=== PATIENT | male | born 1935 | race Caucasian/White ===

== ENCOUNTER 2016-12-02 22:12 | Emergency (ER) | payer MEDICARE, BC ==
[~2016-12-02] VITALS: Ht 177.8 cm; Wt 80.0 kg
[~2016-12-02 22:12] MED LIST: TAMS0.4C20 PO
[2016-12-02 22:15] VITALS: Ht 177.8 cm; Wt 80.0 kg
--- OUTSIDE RECORDS SUMMARY | 2016-12-02 22:15 | XMS REPORT | Continuity of Care Document ---
Author Author [facility] Organization [facility] Address Unknown Phone Unavailable Care Team Providers Care Registered Nurse Ambulatory Name Role Phone Adin Martinez MD PP [phone] Insurance Providers Payer Name Policy Number Subscriber Name Relationship Lyle [facility] Supp [id number] Kieran Lynch 18 Self / Same As Patient [facility] [employer] Amer[employer]p [id number] Kieran Lynch 18 Self / Same As Patient Medicare A And B [id number] Kieran Lynch 18 Self / Same As Patient Advance Directives Directive Response Recorded Date Advanced Directives Not applicable 3:05am Problems No Known Problems or Medical conditions. Allergies, Adverse Reactions, Alerts Allergen Type Severity Reaction Last Updated No Known Drug Allergies 03/13/13 Medications No known medications Response Recorded Date/Time Status not known Unknown Results No Known Relevant Diagnostic Tests, Laboratory Data and/or Discharge Summary. Procedures Procedure Code Date MEASURE BLOOD OXYGEN LEVEL 06294 EXTRACRANIAL BILAT STUDY 59441 12/21/12 COMPREHEN METABOLIC PANEL 76878 03/13/13 ASSAY OF TROPONIN QUANT 13447 03/13/13 ASSAY OF CK (CPK) 42526 03/13/13 CREATINE MB FRACTION 21861 03/13/13 COMPLETE CBC W/AUTO DIFF WBC 40189 PROTHROMBIN TIME 96749 03/13/13 THROMBOPLASTIN TIME PARTIAL 23262 URINALYSIS AUTO W/O SCOPE 95210 03/13/13 CHEST X-RAY 1 VIEW FRONTAL 96518 EMERGENCY DEPT VISIT 85788 03/13/13 MEASURE BLOOD OXYGEN LEVEL 81472 ELECTROCARDIOGRAM TRACING 44775 03/13/13 J2405 03/13/13 A4216 03/13/13 ULTRASOUND THERAPY 09994 03/29/13 THERAPEUTIC EXERCISES 81192 03/29/13 PT EVALUATION 18461 03/29/13 Encounters Encounter Location Date/Time Departed Emergency Room [facility] 03/13/13 2:59am
--- OUTSIDE RECORDS SUMMARY | 2016-12-02 22:15 | XMS REPORT | Summary of Care ---
Author Author Cristóbal LANG Jill Organization Unknown Address [address] [place], [place] [id number] Phone Unavailable Care Team Providers Care Home Economics Expert Name Role Phone Rosario Lainez, Little Unavailable Unavailable Solis P.A., Love Unavailable Unavailable Alonso P.A., Millie Unavailable Unavailable Cristóbal LANGJill Unavailable Unavailable Rickey Lainez, A Unavailable Unavailable Petros Lainez, Stacie Unavailable Unavailable Rosanna Corona Unavailable Unavailable Unavailable Unavailable Functional Status Name Dates Details Functional status health issues are not documented Status: Name Dates Details Cognitive status health issues are not documented Status: Problems Name Dates Details Bronchiectasis (494.0, J47.9) Status: Active Chronic obstructive pulmonary disease (496, J44.9) Status: Active Obstructive sleep apnea (327.23, G47.33) Status: Active Hypoxia (799.02, R09.02) Status: Active Medications Name Dates Details Sulfamethoxazole-TMP DS 800-160 MG TABS TAKE 1 TABLET BY MOUTH TWICE DAILY ROTATE MONTHLY WITH DOXYCYCLINE AND CIPRO Quantity: 20 Harpal Morrell M.D. * Start Active Ipratropium-Albuterol 0.5-2.5 (3) MG/3ML Inhalation Solution USE 1 VIAL IN NEBULIZER FOUR TIMES A DAY * Quantity: 180 Refills: 3 Harpal Morrell M.D. * Start 03-Apr-2010 Active Brovana 15 MCG/2ML Inhalation Nebulization Solution USE 1 VIAL PER NEBULIZER EVERY 12 HOURS * Quantity: 120 Refills: 11 Jill Ambrocio APRN * Start 20-Aug-2016 Active Gentamicin 80 mg in 45cc of [place] Saline [place] 2 squirts each nostril TID * Quantity: 1 Refills: 0 Kevon Lang M.D. * Start 24-Oct-2010 Active Cefuroxime Axetil 250 MG Oral Tablet TAKE 1 TABLET BY MOUTH TWICE DAILY FOR 10 DAYS EVERY 3 MONTHS * Quantity: 20 Refills: 3 Chris Ponce M.D. * Start 03-Dec-2010 Active Supplies Home nebulizer unit, permanent use, Jt=036 * Quantity: 1 Refills: 0 Harpal Morrell M.D. * Start 13-Aug-2012 Active Oxygen Renew home concentrator=4 L at rest & 2 liters with [id number] resting oximetry=88% on room air; exercise oximetry on 5 liters=85% * Quantity: 1 Refills: 0 Solis P.A.Love * Start 10-Dec-2012 Active Oxygen Renew Portable O2 with conserver on 6 liters 8-12 hours a day with activity Exercise oximetry=81% on room air and 85% on 5 liters * Quantity: 1 Refills: 0 Solis P.A.Love * Start 10-Dec-2012 Active Oxygen Oxygen 4L 24 hours, 496, 494, permanent use, Concentrator plus portable system with conserver * Quantity: 1 Refills: 0 Harpal Morrell M.D. * Start 11-Jun-2013 Active Supplies CPAP at 14cm H20, repair, services and supplies, 327.23 Mask, headgear, filters , heated tubing, chinstrap * Quantity: 1 Refills: 0 Harpal Morrell M.D. Start 19-Aug-2013 Active Budesonide 0.25 MG/2ML Inhalation Suspension USE 1 VIAL PER NEBULIZER TWICE DAILY * Quantity: 120 Refills: 11 Tungate MARBLE [employer] GRANITE POLISHER, Jill * Start 20-Aug-2016 Active Supplies nebulizer and supplies permanent use dx 496 * Quantity: 1 Refills: 0 Alonso P.AMillie Riley * Start 15-Nov-2013 Active Supplies CPAP repair, services, and supplies (dx=G47.33)Mask, headgear, filters, heated tubing, chinstrap * Quantity: 1 Refills: 0 Solis P.A.Love * Start 25-May-2015 Active Mucus Relief ER 600 MG Oral Tablet Extended Release 12 Hour * Refills: 0 * Start 24-Nov-2015 Active Supplies Alarm for when the power goes out (he can't hear the soft alarm on his O2 concentrator) dx G47.33, J47.9, permanent use * Quantity: 1 Refills: 0 Alonso P.A.Millie * Start 24-Nov-2015 Active Sulfamethoxazole-Trimethoprim 800-160 MG Oral Tablet TAKE 1 TABLET BY MOUTH TWICE DAILY ROTATE MONTHLY WITH DOXYCYCLINE AND CIPRO * Quantity: 20 Refills: 3 Harpal Morrell M.D. * Start 07-Mar-2016 Active Supplies CPAP 14 cm H2O, Permanent use, G47.33, Heated humidity, [id number], mask, headgear, filters, heated tubing, water chamber, chinstrap * Quantity: 1 Refills: 0 Alonso P.A.Millie * Start 02-May-2016 Active Supplies CPAP repair, services and supplies DX- G47.33, Mask, headgear, filters, heated tubing, chinstrap. * Quantity: 1 Refills: 0 Tungate Jill LANG * Start 26-Sep-2016 Active Allergies and Adverse Reactions Name Dates Details ciprofloxacin (Allergy) Status: Active doxycycline (Allergy) Status: Active Penicillins (Allergy) Status: Active Quinolones (Allergy) Status: Active Past Medical History Name Dates Details History of Acute sinusitis (461.9, J01.90) Status: Resolved History of Bladder Cancer (V10.51) Status: Resolved History of Bronchiectasis with acute exacerbation (494.1, J47.1) Status: Resolved Procedures Procedure Dates Details Procedures not documented Immunization Name Dates Details Pneumo (Pneumovax) Lot #: [id number] on: Influenza Lot #: [id number] on: 16-Mar-2009 Influenza Lot #: [id number] on: 02-May-2011 Influenza Lot #: [id number] on: 13-May-2013 Prevnar 13 Intramuscular Suspension Lot #: [id number] on: 12-Jul-2014 Social History Name Dates Details - Status: Name Dates Details Never smoker Vital Signs Date Test Result Details 26-Sep-2016 12:46 BP Systolic 142 mm[Hg] Status: Comments: Location: ; Position: BP Diastolic 62 mm[Hg] Status: Comments: Location: ; Position: Heart Rate 91 /min Status: Comments: Location: ; Physical Findings 20 Status: Comments: Respiration Height 70 in Status: Weight 170 lb Status: Physical Findings 95 Status: Comments: O2 Saturation FiO2 flow rate 2 L/min Status: Body Mass Index Calculated 24.39 kg/m2 Status: Body Surface Area Calculated 1.95 m2 Status: Results Date Description Value Details Results not documented Plan of Care Name Dates Details Planned Observations Planned Goals not documented Planned Encounters Appointment; Provider: Jill Ambrocio A.P.R.N. On 13:30 Interventions Provided Medication Changes* Supplies - Start Instructions Name Dates Details Instructions not documented Encounters Appointment; Harpal Morrell M.D. Encounter Diagnosis: Problem not documented On 27-Jun-2016 13:00 Appointment; Harpal Morrell M.D. Encounter Diagnosis: Problem not documented On 02-May-2016 13:45 Appointment; Harpal Morrell M.D. Encounter Diagnosis: Problem not documented On 24-Nov-2015 13:15 Appointment; Harpal Morrell M.D. Encounter Diagnosis: Problem not documented On 25-May-2015 11:15 Appointment; Harpal Morrell M.D. Encounter Diagnosis: Problem not documented On 14:45
--- OUTSIDE RECORDS SUMMARY | 2016-12-02 22:15 | XMS REPORT | Summary of Care ---
Author Author Love Victoria Organization Unknown Address [address] [place], [place] [id number] Phone Unavailable Care Team Providers Care Processor Solid Propellant Name Role Phone Love Victoria Unavailable Unavailable Millie Branch Unavailable Unavailable Rickey Lainez, Marleni Unavailable Unavailable Petros Lainez, Stacie Unavailable Unavailable Trey Madera PP Unavailable Unavailable Unavailable Functional Status Functional Status Health Issues* Name Dates Details Functional status health issues are not documented Status: Cognitive Status Health Issues* Name Dates Details Cognitive status health issues are not documented Status: Problems Name Dates Details Chronic obstructive pulmonary disease (496, J44.9) Status: Active Bronchiectasis (494.0, J47.9) Status: Active Hypoxia (799.02, R09.02) Status: Active Obstructive sleep apnea (327.23, G47.33) Status: Active Medications Name Dates Details Sulfamethoxazole-TMP DS 800-160 MG Oral Tablet TAKE ONE TABLET BY MOUTH TWICE A DAY x 10 DAYS Quantity: 20 Millie Gupta.ARosemary* Started ActiveDoxycycline Hyclate 100 MG Oral Capsule Take 1 capsule twice daily for 10 days. * Quantity: 20 Refills: 3 Millie Gupta* Started ActiveBudesonide 0.25 MG/2ML Inhalation Suspension INHALE 1 VIAL VIA NEBULIZER TWICE DAILY * Quantity: 60 Refills: 0 Harpal Morrell M.D.* Started ActiveIpratropium-Albuterol 0.5-2.5 (3) MG/3ML Inhalation Solution USE 1 VIAL IN NEBULIZER FOUR TIMES A DAY * Quantity: 180 Refills: 3 Harpal Morrell M.D.* Started 03-Apr-2010 ActiveGentamicin 80 mg in 45cc of [place] Saline [place] 2 squirts each nostril TID * Quantity: 1 Refills: 0 Kevon Lang M.D.* Started 24-Oct-2010 ActiveSupplies Nocturnal CPAP * Quantity: 1 Refills: 0 Harpal Morrell M.D.* Started 13-Aug-2012 ActiveSupplies Home nebulizer unit, permanent use, Mc=203 * Quantity: 1 Refills: 0 Harpal Morrell M.D.* Started 13-Aug-2012 ActiveOxygen Renew home concentrator=4 L at rest & 2 liters with [id number] resting oximetry=88% on room air; exercise oximetry on 5 liters=85% * Quantity: 1 Refills: 0 Kavya Elyia P.A.* Started 10-Dec-2012 ActiveOxygen Renew Portable O2 with conserver on 6 liters 8-12 hours a day with activity Exercise oximetry=81% on room air and 85% on 5 liters * Quantity: 1 Refills: 0 Love Ely P.A.* Started 10-Dec-2012 ActiveOxygen Oxygen 4L 24 hours, 496, 494, permanent use, Concentrator plus portable system with conserver * Quantity: 1 Refills: 0 Harpal Morrell M.D.* Started 11-Jun-2013 ActiveSupplies CPAP at 14cm H20, repair, services and supplies, 327.23 Mask, headgear, filters , heated tubing, chinstrap * Quantity: 1 Refills: 0 Harpal Morrell M.D.* Started 19-Aug-2013 ActiveSupplies nebulizer and supplies permanent use dx 496 * Quantity: 1 Refills: 0 Millie Gupta P.A.* Started 15-Nov-2013 ActiveCefuroxime Axetil 250 MG Oral Tablet TAKE ONE TABLET BY MOUTH TWICE A DAY FOR 10 DAYS * Quantity: 20 Refills: 3 Millie Gupta P.A.* Started 03-Dec-2010 ActiveBrovana 15 MCG/2ML Inhalation Nebulization Solution INHALE ONE AMPULE BY NEBULIZER EVERY 12 HOURS dx 496/494 * Quantity: 120 Refills: 6 Harpal Morrell M.D.* Started 21-Jun-2010 ActiveBudesonide 0.25 MG/2ML Inhalation Suspension NEBULIZE ONE VIAL VIA NEBULIZER TWICE A DAY DX:496 * Quantity: 120 Refills: 5 Harpal Morrell M.D.* Started 19-Aug-2013 Active Allergies and Adverse Reactions Name Dates Details Quinolones Status: Active Past Medical History Name Dates Details History of Acute sinusitis (461.9, J01.90) Status: Resolved History of Bladder Cancer (V10.51) Status: Resolved History of Bronchiectasis with acute exacerbation (494.1, J47.1) Status: Resolved Procedures Procedure Dates Details Procedures not documented Immunization Name Dates Details Pneumo (Pneumovax) Lot #: [id number] Administered on: Influenza Lot #: [id number] Administered on:16-Mar-2009 Influenza Lot #: [id number] Administered on:02-May-2011 Influenza Lot #: [id number] Administered on:13-May-2013 Prevnar 13 Intramuscular Suspension Lot #: [id number] Administered on:12-Jul-2014 Social History Name Dates Details Smoking Status* Never smoker Vital Signs Date Test Result Details 14:39 BP Systolic 124 mm[Hg] Status: BP Diastolic 66 mm[Hg] Status: Heart Rate 84 /min Status: Weight 179 lb Status: O2 SAT 91 % Status: FiO2 flow rate 4 L/min Status: Body Mass Index Calculated 25.68 kg/m2 Status: Body Surface Area Calculated 1.99 m2 Status: Results Date Description Value Details Results not documented Plan of Care Planned Observations* Name Dates Details Planned Goals not documented Goal Instructions * Instructions not documented Encounters Appointment; Harpal Morrell Encounter Diagnosis: Problem not documented On 14:45 Appointment; Harpal Morrell Encounter Diagnosis: Problem not documented On 12-Jul-2014 11:00 Appointment; Harpal Morrell Encounter Diagnosis: Problem not documented On 13:45 Appointment; Harpal Morrell Encounter Diagnosis: Problem not documented On 15-Nov-2013 14:15 Appointment; Harpal Morrell Encounter Diagnosis: Problem not documented On 19-Aug-2013 13:45 Appointment; Harpal Morrell Encounter Diagnosis: Problem not documented On 13-May-2013 12:00
--- OUTSIDE RECORDS SUMMARY | 2016-12-02 22:15 | XMS REPORT | Continuity of Care Document ---
Author Author [facility] Address Unknown Phone Unavailable Allergies Active Description Code Type Severity Reaction Onset Reported/Identified Relationship to Patient Clinical Status Yes ciprofloxacin NKMA N/A Attacks Tendons 11/19/2013 Medications Problems Procedures Results Encounters ACCT No. Visit Date/Time Discharge Status Pt. Type Provider Facility Loc./Unit Complaint [id number] 05/31/2013 14:00:00 2012 00:01:00 DIS Outpatient [id number] 06/11/2013 12:50:00 2012 23:59:59 [facility] Outpatient [id number] 03/13/2013 02:52:00 2012 23:59:59 C[facility] Outpatient [id number] 03/13/2013 02:59:00 2012 08:02:00 DIS Emergency
--- OUTSIDE RECORDS SUMMARY | 2016-12-02 22:16 | XMS REPORT | Referral Summary ---
Author Author [facility] [place], [facility] Organization [facility] Address Unknown Phone Unavailable Care Team Providers Care Money Room Teller Name Role Phone Laquita Corona Primary Care Physician [phone] Encounter VC Date(s): 12/14/14 - 12/14/14 [facility] [place], [address] [place] [address] Discharge Disposition: 01-Home or Self Care Attending Physician: Tk Josue MD Admitting Physician: Tk Josue MD Vital Signs Most recent to 1 oldest [Reference Range]: Temperature Oral 35 degC [35.8-37.3 degC] *LOW* (12/14/14 10:31 AM) Peripheral Pulse 88 bpm Rate [60-100 bpm] (12/14/14 10:31 AM) Blood Pressure 150/70 mmHg [90-140/60-90 mmHg] *HI* (12/14/14 10:31 AM) SpO2 94 % (12/14/14 10:31 AM) Problem List Condition Effective Dates Status Health Status Informant Anemia(Confirmed) Resolved BPH (benign Active prostatic hyperplasia)(Confirm ed) Bladder Resolved CA(Confirmed) Bronchiolectasis Active (disorder)(Confirmed ) Chronic Resolved Duodenitis(Confirmed ) H. Pylori Resolved +(Confirmed) Hypercholesterolemia Active (Confirmed) Hypoxia(Confirmed) Active Osteoarthritis(Confi Resolved rmed) COPD, Active severe(Confirmed) Sleep Resolved apnea(Confirmed) Sleep apnea Active (disorder)(Confirmed ) Tubulovillous Resolved Adenoma(Confirmed) Allergies, Adverse Reactions, Alerts Substance Reaction Severity Status ciprofloxacin Attacks Tendons Active Medications acetaminophen 325 mg oral tablet tabs, Oral, q4hr, 0 Refill(s) Start Date: 04/13/14 Status: Ordered Bactrim tabs, Oral, BID, takes for tens days every three months rotating with other antibiotics, 0 Refill(s) Start Date: 04/14/14 Status: Ordered Brovana 15 mcg/2 mL inhalation solution 1 Each, NEB, BID, # 60 Each, 0 Refill(s) Start Date: 04/13/14 Status: Ordered budesonide 0.25 mg/2 mL inhalation suspension 2 mL, NEB, BID, # 120 mL, 0 Refill(s) Start Date: 04/14/14 Status: Ordered cefuroxime 250 mg oral tablet tabs, Oral, BID, takes for tens days every three months rotating with other antibiotics, 0 Refill(s) Start Date: 04/14/14 Status: Ordered doxycycline monohydrate 150 mg oral tablet tabs, Oral, BID, takes for tens days every three months rotating with other antibiotics, 0 Refill(s) Start Date: 04/13/14 Status: Ordered pravastatin 20 mg oral tablet 20 mg 1 tabs, Oral, Daily, # 90 tabs, 3 Refill(s), Pharmacy: [facility] [place], 1 tabs Oral Daily,x90 days Start Date: 02/20/15 Stop Date: 02/15/16 Status: Ordered tamsulosin 0.4 mg oral capsule caps, Oral, Daily, 0 Refill(s) Start Date: 04/13/14 Status: Ordered Results Hematology Most recent to 1 oldest [Reference Range]: WBC [4.8-10.8 8.6 10*3/uL 10*3/uL] (12/14/14 11:45 AM) RBC [4.60-6.20 4.90 10*6/uL 10*6/uL] (12/14/14 11:45 AM) Hgb [14.0-18.0 14.1 gm/dL gm/dL] (12/14/14 11:45 AM) Hct [42.0-52.0 %] 44.4 % (12/14/14 11:45 AM) MCV [82.0-99.0 fL] 90.6 fL (12/14/14 11:45 AM) MCH [27.0-32.0 pg] 28.8 pg (12/14/14 11:45 AM) MCHC [32.0-36.0 31.8 gm/dL gm/dL] *LOW* (12/14/14 11:45 AM) RDW [11.5-14.5 %] 14.0 % (12/14/14 1145 AM) Platelet [150-400 194 10*3/uL 10*3/uL] (12/14/1445 AM) MPV [8.8-14.8 fL] 10.6 fL (12/14/1445 AM) Immature 0.2 % Granulocytes (12/14/14) [0.0-1.0 %] Neutrophils [51-75 66 % %] (12/14/1445 AM) Lymphocytes [20-46 17 % %] *LOW* (12/14/14) Monocytes [4-11 %] 12 % *HI* (12/14/14 AM) Eosinophils [0-4 %] 5 % *HI* (12/14/1445 AM) Basophils [0-2 %] 0 % (12/14/1445 AM) Neutro Absolute 5.67 10*3 [1.90-7.00 10*3] (12/14/14 11:45 AM) Lymph Absolute 1.50 10*3 [0.80-3.30 10*3] (12/14/14 11:45 AM) [place] Absolute 1.02 10*3 [0.30-1.00 10*3] *HI* (12/14/14 1145 AM) Eos Absolute 0.39 10*3 [0.00-0.50 10*3] (12/14/14 11:45 AM) Baso Absolute 0.02 10*3 [0.00-0.20 10*3] (12/14/14 11:45 AM) Chemistry Most recent to 1 oldest [Reference Range]: Sodium Lvl [135-144 142 mEq/L mEq/L] (12/14/1445 AM) Potassium Lvl 4.8 mEq/L [3.5-5.2 mEq/L] (12/14/14 1145 AM) Chloride [99-111 103 mEq/L mEq/L] (12/14/14 11:45 AM) CO2 [23-31 mEq/L] 29 mEq/L (12/14/14 1145 AM) AGAP [3-20] 10 (5/27/15 1145 AM) BUN [8-26 mg/dL] 21 mg/dL (12/14/1445 AM) Glucose Lvl [70-99 92 mg/dL mg/dL] (12/14/1445 AM) Creatinine Lvl 1.09 mg/dL [0.72-1.25 mg/dL] (12/14/1445 AM) eGFR [>60 mL/min] >60 mL/min 1 (12/14/14 AM) Calcium Lvl 9.4 mg/dL [8.9-10.5 mg/dL] (12/14/1445 AM) Albumin Lvl [3.4-4.8 4.1 gm/dL gm/dL] (12/14/14 AM) Total Protein 6.6 gm/dL [6.2-8.1 gm/dL] (12/14/14 AM) Globulin [1.8-4.0 2.5 gm/dL gm/dL] (12/14/1445 AM) ALT [0-55 U/L] 12 U/L (12/14/1445 AM) AST [5-34 U/L] 19 U/L (12/14/14 AM) Alk Phos [40-150 74 U/L U/L] (12/14/1445 AM) Bili Total [0.2-1.2 0.6 mg/dL mg/dL] (12/14/1445 AM) Chol [0-199 mg/dL] 206 mg/dL *HI* (12/14/1445 AM) Trig [0-149 mg/dL] 67 mg/dL (12/14/1445 AM) HDL [40-84 mg/dL] 45 mg/dL (12/14/1445 AM) LDL [0-130 mg/dL] 148 mg/dL *HI* (12/14/1445 AM) VLDL Cholesterol 13 mg/dL [0-28 mg/dL] (12/14/1445 AM) Cardiac Risk 4.6 [0.0-5.7] (5/27/15 11:45 AM) 1Result Comment: Multiply eGFR results by 1.21 for race. Immunizations Vaccine Date Refusal Reason influenza virus vaccine, inactivated 04/28/15 influenza virus vaccine, live 05/16/08 Procedures No data available for this section Social History Social History Type Response Smoking Status Never smoker Assessment and Plan Extracted from: Title: Office Visit Note Author: Tk Josue MD Date: 12/14/14 Assessment/Plan Bronchiolectasis (disorder) COPD, severe Nasal congestion Racing heart beat Ordered: CBC w/ Differential Comprehensive Metabolic Panel Screening for cholesterol level Plan: I want to start Flonase 2 squirts right nostril twice a day and follow- up in one month. I am would like to set you up to see Dr. Donis for your episode of fast heartbeats. Continue current medications for COPD and BPH. Follow-up in one month. Ordered: Lipid Panel Orders: fluticasone nasal, 2 sprays, Nasal, BID, # 16 g, 11 Refill(s), Pharmacy: [facility] [id number]
--- OUTSIDE RECORDS SUMMARY | 2016-12-02 22:16 | XMS REPORT | Summary of Care ---
Author Author Millie Branch Organization Unknown Address [address] [place] [address] Phone Unavailable Care Team Providers Care Master Automotive Technician Name Role Phone Rosario Lainez, Little Unavailable Unavailable Love Victoria Unavailable Unavailable Millie Branch Unavailable [...] AND CIPRO Quantity: 20 Harpal Morrell M.D. Start Active Doxycycline Hyclate 100 MG Oral Capsule TAKE 1 CAPSULE BY MOUTH TWICE DAILY FOR 10 DAYS * Quantity: 20 Refills: 3 Harpal Morrell M.D. Start Active Budesonide 0.25 MG/2ML Inhalation Suspension INHALE 1 VIAL VIA NEBULIZER TWICE DAILY (dx:J44.9) * Quantity: 120 Refills: 0 Chris Ponce M.D. Start Active Ipratropium-Albuterol 0.5-2.5 (3) MG/3ML Inhalation Solution USE 1 VIAL IN NEBULIZER FOUR TIMES A DAY * Quantity: 180 Refills: 3 Harpal Morrell M.D. Start 03-Apr-2010 Active Brovana 15 MCG/2ML Inhalation Nebulization Solution USE 1 VIAL PER NEBULIZER EVERY 12 HOURS (Dx: J44.9/J47.9) * Quantity: 120 Refills: 5 Harpal Morrell M.D. * Start 21-Jun-2010 Active Gentamicin 80 mg in 45cc of [place] Saline [place] 2 squirts each nostril TID * Quantity: 1 Refills: 0 Kevon Lang M.D. * Start 24-Oct-2010 Active Cefuroxime Axetil 250 MG Oral Tablet TAKE 1 TABLET BY MOUTH TWICE DAILY FOR 10 DAYS EVERY 3 MONTHS * Quantity: 20 Refills: 33 Harpal Morrell M.D. * Start 03-Dec-2010 Active Supplies Home nebulizer unit, permanent use, Zc=656 * Quantity: 1 Refills: 0 Harpal Morrell M.D. * Start 13-Aug-2012 Active Oxygen Renew home concentrator=4 L at rest & 2 liters with [id number] resting oximetry=88% on room air; exercise oximetry [...] Refills: 0 Harpal Morrell M.D. * Start 19-Aug-2013 Active Budesonide 0.25 MG/2ML Inhalation Suspension USE 1 VIAL PER NEBULIZER TWICE DAILY (Dx: J47.9/J44.9) * Quantity: 120 Refills: 5 Harpal Morrell M.D. * Start 19-Aug-2013 Active Supplies nebulizer and supplies permanent use [...] use * Quantity: 1 Refills: 0 Alonso P.A., Millie * Start 24-Nov-2015 Active Sulfamethoxazole-Trimethoprim 800-160 MG Oral Tablet TAKE 1 TABLET BY MOUTH TWICE DAILY ROTATE MONTHLY WITH DOXYCYCLINE AND CIPRO * Quantity: 20 Refills: 3 Harpal Morrell M.D. * Start 07-Mar-2016 Active Supplies CPAP 14 cm H2O, Permanent use, G47.33, Heated humidity, [id number], mask, headgear, filters, heated tubing, water chamber, chinstrap * Quantity: 1 Refills: 0 Alonso P.A., Millie * Start 02-May-2016 Active Allergies and Adverse Reactions Name Dates Details ciprofloxacin (Allergy) Status: Active Penicillins (Allergy) Status: Active Quinolones (Allergy) Status: Active Past Medical History Name Dates Details History of Acute sinusitis (461.9, J01.90) Status: Resolved History of Bladder Cancer (V10.51) Status: Resolved History of Bronchiectasis with acute exacerbation (494.1, J47.1) Status: Resolved Procedures Procedure Dates Details Procedures not documented Immunization Name Dates Details Pneumo (Pneumovax) Lot #: [id number] on: Influenza Lot #: [id number] on: 16-Mar-2009 Influenza Lot #: [id number] on: 02-May-2011 Influenza Lot #: [id number] on: 13-May-2013 Prevnar 13 Intramuscular Suspension Lot #: [id number] on: 12-Jul-2014 Social History Name Dates Details - Status: Name Dates Details Never smoker Vital Signs Date Test Result Details 02-May-2016 13:42 BP Systolic 132 mm[Hg] Status: Comments: Location: ; Position: BP Diastolic 80 mm[Hg] Status: Comments: Location: ; Position: Heart Rate 78 /min Status: Comments: Location: ; Height 70 in Status: Physical Findings 98 Status: Comments: O2 Saturation FiO2 flow rate 4 L/min Status: Results Date Description Value Details Results not documented Plan of Care Name Dates Details Planned Observations Planned Goals not documented Planned Encounters Appointment; Provider: Harpal Morrell M.D. On 27-Jun-2016 13:00 Interventions Provided Medication Changes* Supplies - Start Instructions Name Dates Details Instructions not documented Encounters Appointment; Harpal Morrell M.D. Encounter Diagnosis: Problem not documented On 24-Nov-2015 13:15 Appointment; Harpal Morrell M.D. Encounter Diagnosis: Problem not documented On 25-May-2015 11:15 Appointment; Harpal Morrell M.D. Encounter Diagnosis: Problem not documented On 14:45 Appointment; Harpal Morrell M.D. Encounter Diagnosis: Problem not documented On 12-Jul-2014 11:00
--- OUTSIDE RECORDS SUMMARY | 2016-12-02 22:16 | XMS REPORT | Summary of Care ---
Author Author Millie Branch Organization Unknown Address [address] [place] [address] Phone Unavailable Care Team Providers Care Skilled Nursing Professional Name Role Phone Rosario Lainez, Little Unavailable [...] DAY x 10 DAYS Quantity: 20 Millie Gupta.Norma* Started ActiveDoxycycline Hyclate 100 MG Oral Capsule Take 1 capsule twice daily for 10 days. * Quantity: 20 Refills: 3 Millie Gupta* Started ActiveBudesonide 0.25 MG/2ML Inhalation Suspension INHALE THE CONTENTS OF 1 VIAL VIA NEBULIZER TWO TIMES A DAY * Quantity: 60 Refills: 0 Chris Ponce M.D.* Started ActiveFluconazole 100 MG Oral Tablet i po daily x 10 days * Quantity: 10 Refills: 0 Harpal Morrell M.D.* Started 24-Mar-2009 ActiveIpratropium-Albuterol 0.5-2.5 (3) MG/3ML Inhalation Solution USE 1 VIAL IN NEBULIZER FOUR TIMES A DAY * Quantity: 180 Refills: 3 Harpal Morrell M.D.* Started 03-Apr-2010 ActiveBrovana 15 MCG/2ML Inhalation Nebulization Solution INHALE ONE VIAL VIA NEBULIZER TWICE A DAY. DX 496 * Quantity: 360 Refills: 3 Harpal Morrell M.D.* Started 21-Jun-2010 ActiveGentamicin 80 mg in 45cc of [place] Saline [place] 2 squirts each nostril TID * Quantity: 1 Refills: 0 Kevon Lang M.D.* Started 24-Oct-2010 ActiveCefuroxime Axetil 250 MG Oral Tablet TAKE ONE TABLET BY MOUTH TWICE A DAY FOR 10 DAYS * Quantity: 20 Refills: 3 Millie Gupta P.A.* Started 03-Dec-2010 ActiveSupplies Nocturnal CPAP * Quantity: 1 Refills: 0 Harpal Morrell M.D.* Started 13-Aug-2012 ActiveOxygen Renew home concentrator=4 L at rest & 2 liters with ueyix0-10-01 resting oximetry=88% on room air; exercise oximetry on 5 liters=85% * Quantity: 1 Refills: 0 Love Ely P.A.* Started 10-Dec-2012 ActiveOxygen Renew Portable O2 [...] Refills: 0 Harpal Morrell M.D.* Started 19-Aug-2013 ActiveBudesonide 0.25 MG/2ML Inhalation Suspension USE 1 UNIT DOSE VIA NEBULIZER TWO TIMES A DAY * Quantity: 2 Refills: 12 Millie Gupta P.A.* Started 19-Aug-2013 Active2 ML Plas Cont (30 Plas Conts) Supplies nebulizer and supplies permanent use dx 496 * Quantity: 1 Refills: 0 Millie Gupta* Started 15-Nov-2013 ActiveSuppani Home nebulizer unit, permanent use, Na=768 * Quantity: 1 Refills: 0 Harpal Morrell M.D.* Started 13-Aug-2012 Active Allergies and Adverse Reactions Name Dates Details Quinolones Status: Active Past Medical History Name Dates Details History of Acute sinusitis (461.9, J01.90) Status: Resolved History of Bladder Cancer (V10.51) Status: Resolved History of Bronchiectasis with acute exacerbation (494.1, J47.1) Status: Resolved Procedures Procedure Dates Details Procedures not documented Immunization Name Dates Details Pneumo (Pneumovax) Lot #: [id number] Administered on: Influenza Lot #: [id number] Administered on:16-Mar-2009 Influenza Lot #: [id number] Administered on:02-May-2011 Influenza Lot #: [id number] Administered on:13-May-2013 Prevnar 13 Intramuscular Suspension Lot #: [id number] Administered on:12-Jul-2014 Social History Name Dates Details Smoking Status* Never smoker Vital Signs Date Test Result Details 12-Jul-2014 11:18 BP Systolic 137 mm[Hg] Status: BP Diastolic 73 mm[Hg] Status: Heart Rate 82 /min Status: Height 70 in Status: O2 SAT 94 % Status: FiO2 flow rate 4 L/min Status: Results Date Description Value Details Results not documented Plan of Care Planned Observations* Name Dates Details Planned Goals not documented Goal Planned Encounters* Appointment; Provider: Harpal Morrell On 13:45 Instructions * Instructions not documented Encounters Appointment; Harpal Morrell Encounter Diagnosis: Problem not documented On 12-Jul-2014 11:00 Appointment; Harpal Morrell Encounter Diagnosis: Problem not documented On 13:45 Appointment; Harpal Morrell Encounter Diagnosis: Problem not documented On 15-Nov-2013 14:15 Appointment; Harpal Morrell Encounter Diagnosis: Problem not documented On 19-Aug-2013 13:45 Appointment; Harpal Morrell Encounter Diagnosis: Problem not documented On 13-May-2013 12:00 Appointment; Harpal Morrell Encounter Diagnosis: Problem not documented On 10-Dec-2012 14:30 Appointment; Harpal Morrell Encounter Diagnosis: Problem not documented On 13-Aug-2012 14:30
--- OUTSIDE RECORDS SUMMARY | 2016-12-02 22:16 | XMS REPORT | Summary of Care ---
Author Author Harpal Morrell M.D. Organization Unknown Address [address] [place], [place] [id number] Phone Unavailable Care Team Providers Care Party Demonstrator Name Role Phone Love Victoria Unavailable Unavailable [...] Status: Active Bronchiectasis (494.0, J47.9) Status: Active Obstructive sleep apnea (327.23, G47.33) [...] Quantity: 120 Refills: 5 Harpal Morrell M.D. Start 21-Jun-2010 Active Gentamicin 80 mg in 45cc of [place] Saline [place] 2 squirts each nostril TID * Quantity: 1 Refills: 0 Kevon Lang M.D. Start 24-Oct-2010 Active Cefuroxime Axetil 250 MG Oral Tablet TAKE 1 TABLET BY MOUTH TWICE DAILY FOR 10 DAYS EVERY 3 MONTHS * Quantity: 20 Refills: 0 Harpal Morrell M.D. * Start 22-May-2016 Active Supplies Home nebulizer unit, permanent use, Fe=871 * Quantity: 1 Refills: 0 Harpal Morrell M.D. * Start 13-Aug-2012 Active Oxygen Renew home concentrator=4 L at rest & 2 liters with [id number] resting oximetry=88% on room air; exercise oximetry on 5 liters=85% * Quantity: 1 Refills: 0 Solis P.A., Love * Start 10-Dec-2012 Active Oxygen Renew Portable O2 with conserver on 6 liters 8-12 hours a day with activity Exercise oximetry=81% on room air and 85% on 5 liters * Quantity: 1 Refills: 0 Solis P.A., Love * Start 10-Dec-2012 Active Oxygen Oxygen 4L 24 hours, 496, 494, permanent use, Concentrator plus portable system with conserver * Quantity: 1 Refills: 0 Harpal Morrell M.D. Start 11-Jun-2013 Active Supplies CPAP at 14cm [...] 496 * Quantity: 1 Refills: 0 Alonso P.A.Millie * Start 15-Nov-2013 Active Supplies CPAP repair, services, and supplies (dx=G47.33)Mask, headgear, filters, heated tubing, chinstrap * Quantity: 1 Refills: 0 Solis P.A., Love * Start 25-May-2015 Active Mucus Relief ER [...] cm H2O, Permanent use, G47.33, Heated humidity, [id number], mask, headgear, filters, heated tubing, water chamber, [...] Lot #: [id number] on: Influenza Lot #: [id number] on: 16-Mar-2009 Influenza Lot #: [id number] on: 02-May-2011 Influenza Lot #: [id number] on: 13-May-2013 Prevnar 13 Intramuscular Suspension Lot #: [id number] on: 12-Jul-2014 Social History Name Dates Details - Status: Name Dates Details Never smoker Vital Signs Date Test Result Details 27-Jun-2016 12:46 BP Systolic 152 mm[Hg] Status: Comments: Location: ; Position: BP Diastolic 70 mm[Hg] Status: Comments: Location: ; Position: Heart Rate 82 /min Status: Comments: Location: ; Height 70 in Status: Weight 173 lb Status: Physical Findings 98 Status: Comments: O2 Saturation FiO2 flow rate 4 L/min Status: Body Mass Index Calculated 24.82 kg/m2 Status: Body Surface Area Calculated 1.96 m2 Status: Results Date Description Value Details Results not documented Plan of Care Name Dates Details Planned Observations Planned Goals not documented Planned Encounters Appointment; Provider: Jill Ambrocio A.P.R.N. On 26-Sep-2016 13:00 Instructions Name Dates Details Instructions not documented [...]
--- OUTSIDE RECORDS SUMMARY | 2016-12-02 22:16 | XMS REPORT ---
Author Author Harpal Morrell Organization Unknown Address [address] [place], [place] [id number] Phone Care Team Providers Care Foam Caster Name Role Phone Al Guaman PP Unavailable Unavailable Reason for Referral No Reason for Referral was given. History of Present Illness No HPI available. Problems * Normal Routine History And Physical Senior Citizen (65-80) (V70.0); ( Active) * Bronchiectasis With Acute Exacerbation (494.1); (Active) * Acute Sinusitis (461.9); (Active) * Bronchiectasis (494.0); (Active) * Obstructive Sleep Apnea (327.23); (Active) * Hypoxia (799.02); (Active) Medication * Sulfamethoxazole-TMP DS 800-160 MG Oral Tablet; Take one tablet by mouth twice a day; Start Date: 12/29/2008; End Date: (Active) * Budesonide 0.25 MG/2ML Inhalation Suspension; USE 1 UNIT DOSE VIA NEBULIZER TWO TIMES A DAY; Start Date: 12/29/2008; End Date: (Active) * Fluconazole 100 MG Oral Tablet; i po daily x 10 days; Start Date: 03/24/2009 ( Active) * Ipratropium-Albuterol 0.5-2.5 (3) MG/3ML Inhalation Solution; USE 1 VIAL IN NEBULIZER FOUR TIMES A DAY; Start Date: 04/03/2010 (Active) * Brovana 15 MCG/2ML Inhalation Nebulization Solution; USE 1 VIAL IN NEBULIZER TWICE DAILY; Start Date: 06/21/2010; End Date: (Active) * Gentamicin 80 mg in 45cc of [place] Saline [place]; 2 squirts each nostril TID; Start Date: 10/24/2010; End Date: (Active) * Cefuroxime Axetil 250 MG Oral Tablet; TAKE 1 TABLET BY MOUTH TWO TIMES A DAY FOR TEN DAYS EVERY 3 MONTHS; Start Date: 12/03/2010; End Date: ( Active) * Oxygen; Start Date: 09/26/2011 (Active) * Supplies; Nocturnal CPAP; Start Date: 08/13/2012 (Active) * Supplies; Home nebulizer unit, permanent use, Da=128; Start Date: 08/13/2012 ( Active) Allergies and Adverse Reactions * No Known Drug Allergies (Active) Past Medical History * History of Bladder Cancer (V10.51); (Resolved) * History of Chronic Obstructive Pulmonary Disease (496); (Resolved) Immunization * Pneumo (Pneumovax) (Lot #: [id number]) - Administered on: 01/26/2009 * Influenza (Lot #: [id number]) - Administered on: 03/16/2009 * Influenza (Lot #: [id number]) - Administered on: 05/02/2011 Family History * No Family history of Pulmonary Disease (Active) * No Family history of Breathing-related Sleep Disorder (Active) Social History * Never A Smoker (Active) * Racial Background (___ %) (Active) * Marital History - Currently (Active) Advance Directives * No Advance Directives available. Encounters * Appointment 12/10/2012 * [facility] , Provider: Petros Rowan, Status: Pen , Time: 2:30 PM 2013
--- OUTSIDE RECORDS SUMMARY | 2016-12-02 22:16 | XMS REPORT | Continuity of Care Document ---
Author Author Rosanna Corona MD Ambulatory Address [address] [place] [address] [place] [address] Phone Care Team Providers Care Customer Servicer Name Role Phone Trey Madera PP Unavailable Payers Payer name Insurance type Covered alliance party ID Authorization(s) Unknown Problems Condition Effective Dates (start - stop) Clinical Status Bronchitis, Acute - *Chronic COPD - *Chronic Cough - *Acute Sleep Apnea - Chronic Bronchiectasis without acute exacerbation - Chronic COPD (chronic obstructive pulmonary disease) - *Chronic Emphysema - *Chronic Anemia - Asymptomatic Synovial cyst - Asymptomatic COPD - *Chronic Hypoxia - *Chronic Impacted cerumen - *Chronic Other emphysema - *Chronic Sleep Apnea - *Chronic Bronchiectasis without acute exacerbation - *Chronic Pneumonia - *Chronic [place] (hard of hearing) - *Chronic COPD - Acute Exacerbation Family History Family Member Diagnosis Age At Onset Status Mother (Unknown) CVA (Stroke) Yes Mother (Unknown) arrhythmia Yes Father (Unknown) Congestive heart failure Yes Social History Social History Element Description Quantity Unknown Allergies, Adverse Reactions, Alerts Substance Reaction Severity Status CIPROFLOXACIN Attacks Tendons Unknown CIPROFLOXACIN HCL Attacks Tendons Unknown Medications Medication Instructions Dosage Effective Dates (start - stop) Status albuterol sulfate 2.5 mg/3 mL (0.083 %) solution for nebulization inhale 3 milliliter (2.5MG) by nebulization route every 6 hours as needed. 2.5 MG Sep - Active unknown antibiotic - Active doxycycline monohydrate 50 mg capsule take 1 capsule (50MG) by oral route every 12 hours 50 MG - No Longer Active Bactrim DS 800 mg-160 mg tablet take 1 tablet by oral route every 12 hours 0 - No Longer Active albuterol sulfate HFA 90 mcg/actuation aerosol inhaler inhale 2 puff by inhalation route 4 times every day as needed 0 - No Longer Active prednisone 10 mg tablet take 1 tablet (10MG) by oral route every day Take 4 a day for 5 days then 2 a day for 5 days then 1 a day for 5 days. 10 MG - No Longer Active prednisone 10 mg tablet Take 4 tabs x 5 days, 2 tabs x 5 days, 1 tab x 5 days - No Longer Active tamsulosin ER 0.4 mg capsule,extended release 24 hr take 1 capsule (0.4MG) by oral route every day at bedtime 0.4 MG - Active doxycycline monohydrate 150 mg capsule take 1 capsule (150MG) by oral route every day 150 MG - Active Brovana 15 mcg/2 mL solution for nebulization inhale 2 milliliter (15MCG) by inhalation route 2 times every day 15 MCG - Active Mucinex DM 30 mg-600 mg tablet,extended release 12 hr take 1 tablet by oral route every 12 hours 0 - Active [place] Nasal 0.65 % spray aerosol Use 4 times daily - Active acetaminophen 325 mg tablet take 2 Tablet (650MG) by oral route every 5 hours as needed 650 MG - Active Immunizations Vaccine Date Status Comments flu (split) (3 yrs or older) completed - Completed reason: other provider Results Test Name Date and Time Measure Units Reference Range Abnormal Flag Comments Panel Description: CBC WBC 16:44:00 7.0 1000/cmm 5.0-10.0 RBC 16:44:00 4.77 mil/cmm 4.20-6.00 HGB 16:44:00 13.4 g/dL 14.0-18.0 L HCT 16:44:00 43.4 % 40.0-54.0 MCV 16:44:00 91.0 fL 80.0-96.0 MCH 16:44:00 28.1 pg 26.0-34.0 MCHC 16:44:00 30.9 g/dL 32.0-36.0 L RDW 16:44:00 14.3 % 0.0-14.5 PLT 16:44:00 167 1000/cmm 150-400 SEG 16:44:00 76 % 50-70 H LYMPH 16:44:00 8 % 20-40 L MONO 16:44:00 14 % 4-8 H EOSIN 16:44:00 3 % <6 BASO 16:44:00 0 % <2 Vital Signs Date / Time: Height Weight Pulse Rate Blood Pressure Temperature /15:45:00 161.60 lbs 100 /min 140/80 mm[Hg] 98.9 F Procedures Procedure Date Unknown Encounters Encounter Location Date Patient Visit [facility] Patient Visit [facility] Patient Visit [facility] Patient Visit [facility] Patient Visit [facility] Patient Visit [facility] Patient Visit [facility] Patient Visit [facility] Advance Directives Directive Effective Date Unknown
--- OUTSIDE RECORDS SUMMARY | 2016-12-02 22:16 | XMS REPORT | Summary of Care ---
Author Author Love Victoria Organization Unknown Address [address] [place], [place] [id number] Phone Unavailable Care Team Providers Care Dimension Mill Worker Name Role Phone Trey Madera Unavailable Unavailable Unavailable Unavailable Functional Status Functional Status Health Issues* Name Dates Details No known functional status health issues Status: Cognitive Status Health Issues* Name Dates Details No known cognitive status health issues Status: Problems Name Dates Details Chronic obstructive pulmonary disease (496, J44.9) Status: Active Bronchiectasis (494.0, J47.9) Status: Active Hypoxia (799.02, R09.02) Status: Active Obstructive sleep apnea (327.23, G47.33) Status: Active Medications Name Dates Details Doxycycline Hyclate 100 MG Oral Capsule TAKE 1 CAPSULE TWICE DAILY FOR 10 DAYS. Quantity: 20 Capsule * Started ActiveBudesonide 0.25 MG/2ML Inhalation Suspension INHALE THE CONTENTS OF 1 VIAL VIA NEBULIZER TWO TIMES A DAY * Quantity: 60 ML Refills: 0 * Started ActiveFluconazole 100 MG Oral Tablet i po daily x 10 days * Quantity: 10 Refills: 0 * Started 24-Mar-2009 ActiveIpratropium-Albuterol 0.5-2.5 (3) MG/3ML Inhalation Solution USE 1 VIAL IN NEBULIZER FOUR TIMES A DAY * Quantity: 180 ML Refills: 3 * Started 03-Apr-2010 ActiveBrovana 15 MCG/2ML Inhalation Nebulization Solution USE 1 VIAL IN NEBULIZER TWICE DAILY * Quantity: 360 ML Refills: 3 * Started 21-Jun-2010 ActiveGentamicin 80 mg in 45cc of [place] Saline [place] 2 squirts each nostril TID * Quantity: 1 Refills: 0 * Started 24-Oct-2010 ActiveCefuroxime Axetil 250 MG Oral Tablet TAKE 1 TABLET BY MOUTH TWO TIMES A DAY FOR TEN DAYS EVERY 3 MONTHS * Quantity: 20 Not Specified Refills: 3 * Started 03-Dec-2010 ActiveSupplies Nocturnal CPAP * Quantity: 1 Refills: 0 * Started 13-Aug-2012 ActiveSupplies Home nebulizer unit, permanent use, Pw=491 * Quantity: 1 Refills: 0 * Started 13-Aug-2012 ActiveOxygen Renew home concentrator=4 L at rest & 2 liters with -26-14 resting oximetry=88% on room air; exercise oximetry on 5 liters=85% * Quantity: 1 Refills: 0 * Started 10-Dec-2012 ActiveOxygen Renew Portable O2 with conserver on 6 liters 8-12 hours a day with activity Exercise oximetry=81% on room air and 85% on 5 liters * Quantity: 1 Refills: 0 * Started 10-Dec-2012 ActiveOxygen Oxygen 4L 24 hours, 496, 494, permanent use, Concentrator plus portable system with conserver * Quantity: 1 Refills: 0 * Started 11-Jun-2013 ActiveSupplies CPAP at 14cm H20, repair, services and supplies, 327.23 Mask, headgear, filters , heated tubing, chinstrap * Quantity: 1 Refills: 0 * Started 19-Aug-2013 ActiveBudesonide 0.25 MG/2ML Inhalation Suspension USE 1 UNIT DOSE VIA NEBULIZER TWO TIMES A DAY * Quantity: 2X2 ML Plas Cont (30 Plas Conts) Refills: 12 * Started 19-Aug-2013 ActiveSupplies nebulizer and supplies permanent use dx 496 * Quantity: 1 Refills: 0 * Started 15-Nov-2013 Active Allergies and Adverse Reactions Name Dates Details Quinolones Status: Active Past Medical History Name Dates Details Bladder Cancer (V10.51) Status: Resolved Acute sinusitis (461.9, J01.90) Status: Resolved Bronchiectasis with acute exacerbation (494.1, J47.1) Status: Resolved Procedures Procedure Dates Details Surgical history not documented Procedures not documented Immunization Name Dates Details Pneumo (Pneumovax) Lot #: [id number] Administered on: Influenza Lot #: [id number] Administered on:16-Mar-2009 Influenza Lot #: [id number] Administered on:02-May-2011 Influenza Lot #: [id number] Administered on:13-May-2013 Social History Name Dates Details Never smoker Smoking Status* Never smoker Vital Signs Date Test Result Details 13:46 BP Systolic 130 mm[Hg] Status: BP Diastolic 71 mm[Hg] Status: Heart Rate 86 /min Status: Height 70 in Status: O2 SAT 94 % Status: FiO2 flow rate 2 L/min Status: Results Date Description Value Details Results not documented Plan of Care Instructions* Instructions not documented Planned Observations* Name Dates Details Planned Goals not documented Goal Planned Encounters* Appointment; Provider: Harpal Morrell On 18-Aug-2014 13:15 Instructions * No Known Instructions Encounters Appointment; Harpal Morrell Encounter Diagnosis: Problem [...]
--- OUTSIDE RECORDS SUMMARY | 2016-12-02 22:16 | XMS REPORT | Summary of Care ---
Author Author Harpal Morrell M.D. Organization Unknown Address [address] [place], [place] [id number] Phone Unavailable Care Team Providers Care Outside Industrial Sales Representative Name Role Phone Love Victoria Unavailable Unavailable [...] 03-Apr-2010 ActiveGentamicin 80 mg in 45cc of [place] Saline [place] 2 squirts each nostril TID * Quantity: 1 Refills: 0 Kevon Lang M.D.* Started 24-Oct-2010 ActiveSupplies Home nebulizer unit, permanent use, Pb=813 * Quantity: 1 Refills: 0 Harpal Morrell M.D.* Started 13-Aug-2012 ActiveOxygen Renew home concentrator=4 L at rest & 2 liters with -44-41 resting oximetry=88% on room air; exercise oximetry [...] #: [id number] Administered on: Influenza Lot #: [id number] Administered on:16-Mar-2009 Influenza Lot #: [id number] Administered on:02-May-2011 Influenza Lot #: [id number] Administered on:13-May-2013 Prevnar 13 Intramuscular Suspension Lot #: [id number] Administered on:12-Jul-2014 Social History Name Dates Details [...] Planned Encounters* Appointment; Provider: Harpal Morrell On 20-Jul-2015 13:45 Instructions * Instructions not documented Encounters [...]
--- OUTSIDE RECORDS SUMMARY | 2016-12-02 22:16 | XMS REPORT | Summary of Care ---
Author Author Love Victoria Organization Unknown Address [address] [place], [place] [id number] Phone Unavailable Care Team Providers Care Library Science Instructor Name Role Phone Love Victoria Unavailable Unavailable [...] DOXYCYCLINE AND CIPRO Quantity: 20 Harpal Morrell M.D.* Started ActiveBudesonide 0.25 MG/2ML Inhalation Suspension INHALE [...] Refills: 6 Harpal Morrell M.D.* Started 21-Jun-2010 ActiveGentamicin 80 mg in 45cc of [place] Saline [place] 2 squirts each nostril TID * Quantity: 1 Refills: 0 Kevon Lang M.D.* Started 24-Oct-2010 ActiveCefuroxime Axetil 250 MG Oral Tablet TAKE 1 TABLET BY MOUTH TWICE DAILY FOR 10 DAYS EVERY 3 MONTHS * Quantity: 20 Refills: 33 Harpal Morrell M.D.* Started 03-Dec-2010 [employer] Home nebulizer unit, permanent use, Il=313 * Quantity: 1 Refills: 0 Harpal Morrell M.D.* Started 13-Aug-2012 ActiveOxygen Renew home concentrator=4 L at rest & 2 liters with -74-89 resting oximetry=88% on room air; exercise oximetry [...] Started 19-Aug-2013 ActiveBudesonide 0.25 MG/2ML Inhalation Suspension NEBULIZE ONE VIAL VIA NEBULIZER TWICE A DAY DX:496 * Quantity: 120 Refills: 5 Harpal Morrell M.D.* Started 19-Aug-2013 [employer] nebulizer and supplies permanent use dx 496 * Quantity: 1 Refills: 0 Millie Gupta P.ARosemary* Started 15-Nov-2013 [employer] CPAP repair, services, and supplies (dx=G47.33)Mask, headgear, filters, heated tubing, chinstrap * Quantity: 1 Refills: 0 Love Ely P.A.* Started 25-May-2015 Active Allergies and Adverse Reactions Name Dates Details ciprofloxacin Status: Active Penicillins Status: Active Quinolones Status: Active Past Medical History Name Dates Details History of Acute sinusitis (461.9, J01.90) Status: Resolved History of Bladder Cancer (V10.51) Status: Resolved History of Bronchiectasis with acute exacerbation (494.1, J47.1) Status: Resolved Procedures Procedure Dates Details Procedures not documented Immunization Name Dates Details Pneumo (Pneumovax) Lot #: [id number] Administered on: Influenza Lot #: [id number] Administered on:16-Mar-2009 Influenza Lot #: [id number] Administered on:02-May-2011 Influenza Lot #: [id number] Administered on:13-May-2013 Prevnar 13 Intramuscular Suspension Lot #: [id number] Administered on:12-Jul-2014 Social History Name Dates Details Smoking Status* Never smoker Vital Signs Date Test Result Details 25-May-2015 10:59 BP Systolic 126 mm[Hg] Status: BP Diastolic 68 mm[Hg] Status: Heart Rate 88 /min Status: Weight 180 lb Status: O2 SAT 93 % Status: FiO2 flow rate 4 L/min Status: Body Mass Index Calculated 25.83 kg/m2 Status: Body Surface Area Calculated 2 m2 Status: Results Date Description Value Details Results not documented Plan of Care Planned Observations* Name Dates Details Planned Goals not documented Goal Planned Encounters* Appointment; Provider: Harpal Morrell On 24-Nov-2015 13:15 * Appointment; Provider: Harpal Morrell On 20-Jul-2015 13:45 Instructions * Instructions not documented Encounters Appointment; Harpal Morrell Encounter Diagnosis: Problem not documented On 25-May-2015 11:15 Appointment; Harpal Morrell Encounter Diagnosis: Problem not documented On 14:45 Appointment; Harpal Morrell Encounter Diagnosis: Problem not documented On 12-Jul-2014 11:00 Appointment; Harpal Morrell Encounter Diagnosis: Problem not documented On 13:45 Appointment; Harpal Morrell Encounter Diagnosis: Problem not documented On 15-Nov-2013 14:15 Appointment; Harpal Morrell Encounter Diagnosis: Problem not documented On 19-Aug-2013 13:45
--- OUTSIDE RECORDS SUMMARY | 2016-12-02 22:16 | XMS REPORT | Referral Summary ---
Author Author [facility] Organization [facility] Address Unknown Phone Unavailable Care Team Providers Care Billet Heater Name Role Phone Laquita Corona Primary Care Physician [phone] Encounter VC Date(s): 02/20/15 - 02/20/15 [facility], [address] [place] [address]- Discharge Disposition: 01-Home or Self Care Attending Physician: Tk Josue MD Admitting Physician: Tk Josue MD Vital Signs Most recent to 1 oldest [Reference Range]: Temperature Tympanic 37.1 degC [36.6-38.1 degC] (02/20/15 3:02 PM) Peripheral Pulse 84 bpm Rate [60-100 bpm] (02/20/15 3:02 PM) Blood Pressure 130/78 mmHg [90-140/60-90 mmHg] (02/20/15 3:02 PM) Problem List Condition Effective Dates Status Health [...] Daily, # 90 tabs, 3 Refill(s), Pharmacy: [facility] [id number], 1 tabs Oral Daily,x90 days Start Date: 02/20/15 Stop Date: 02/15/16 Status: Ordered tamsulosin 0.4 mg oral capsule See Instructions, TAKE 1 CAPSULE BY MOUTH AT BEDTIME, # 30 caps, eRx: [facility] [id number], TAKE 1 CAPSULE BY MOUTH AT BEDTIME Start Date: 08/22/15 Status: Ordered tamsulosin 0.4 mg oral capsule See Instructions, TAKE 1 CAPSULE BY MOUTH AT BEDTIME, # 30 caps, eRx: [facility] [id number], TAKE 1 CAPSULE BY MOUTH AT BEDTIME Start Date: 08/22/15 Status: Ordered Results No data available for this section Immunizations Vaccine Date Refusal Reason influenza virus vaccine, inactivated 04/28/15 influenza virus vaccine, live 05/16/08 Procedures No data available for this section Social History Social History Type Response Smoking Status Never smoker Assessment and Plan Extracted from: Title: Admission H & P Author: Tk Josue MD Date: 02/20/15 Assessment/Plan BPH (benign prostatic hyperplasia) COPD, severe Hypercholesterolemia Plan: I am going to start you on pravastatin 20 mg a day and will have you return in 3 months. I will check an LDL and CMP at that time. Continue all other medications. Follow-up in 3 months. Orders: pravastatin, 20 mg 1 tabs, Oral, Daily, # 90 tabs, 3 Refill(s), Pharmacy: [facility] [id number], 1 tabs Oral Daily,x90 days
--- OUTSIDE RECORDS SUMMARY | 2016-12-02 22:16 | XMS REPORT | Referral Summary ---
Author Author [facility] Organization [facility] Address Unknown Phone Unavailable Care Team Providers Care Business Support Liaison Name Role Phone Laquita Corona Primary Care Physician [phone] Encounter VC Date(s): 09/14/15 - 09/14/15 [facility] [address] [place], [place] [address] Discharge Disposition: 01-Home or Self Care Attending Physician: Colleen Adamson DO Admitting Physician: Colleen Adamson DO Referring Physician: Rosanna Corona MD Vital Signs No data available for this section Problem List Condition Effective Dates Status Health [...] Daily, # 90 tabs, 3 Refill(s), Pharmacy: [facility] [id number], 1 tabs Oral Daily,x90 days Start Date: 02/20/15 Stop Date: 02/15/16 Status: Ordered tamsulosin 0.4 mg oral capsule See Instructions, TAKE 1 CAPSULE BY MOUTH AT BEDTIME, # 30 caps, eRx: [facility] [id number], TAKE 1 CAPSULE BY MOUTH AT BEDTIME Start Date: 08/22/15 Status: Ordered tamsulosin 0.4 mg oral capsule See Instructions, TAKE 1 CAPSULE BY MOUTH AT BEDTIME, # 30 caps, eRx: [facility] [id number], TAKE 1 CAPSULE BY MOUTH AT BEDTIME Start Date: 08/22/15 Status: Ordered Results No data available for this section Immunizations Vaccine Date Refusal Reason influenza virus vaccine, inactivated 04/28/15 influenza virus vaccine, live 05/16/08 Procedures No data available for this section Social History Social History Type Response Smoking Status Never smoker Assessment and Plan No data available for this section
--- OUTSIDE RECORDS SUMMARY | 2016-12-02 22:16 | XMS REPORT | Summary of Care ---
Author Author Millie Branch Organization Unknown Address [address] [place] [address] Phone Unavailable Care Team Providers Care Construction Trench Digger Name Role Phone Rosario Lainez, Little Unavailable Unavailable Love Victoria Unavailable Unavailable Millie Branch Unavailable Unavailable Rickey Lainez, Marleni Unavailable Unavailable Petros Lainez, Stacie Unavailable Unavailable Rosanna Corona PP Unavailable Unavailable Unavailable Functional Status Functional Status Health Issues* Name Dates Details Functional status health issues are not documented Status: Cognitive Status Health Issues* Name Dates Details Cognitive status health issues are not documented Status: Problems Name Dates Details Obstructive sleep apnea (327.23, G47.33) Status: Active Hypoxia (799.02, R09.02) Status: Active Chronic obstructive pulmonary disease (496, J44.9) Status: Active Bronchiectasis (494.0, J47.9) Status: Active Medications Name Dates Details Sulfamethoxazole-TMP DS 800-160 MG TABS TAKE 1 TABLET BY MOUTH TWICE DAILY ROTATE MONTHLY WITH DOXYCYCLINE AND CIPRO Quantity: 20 Harpal Morrell M.D.* Started ActiveDoxycycline Hyclate 100 MG Oral Capsule TAKE 1 CAPSULE BY MOUTH TWICE DAILY FOR 10 DAYS * Quantity: 20 Refills: 3 Harpal Morrell M.D.* Started ActiveBudesonide 0.25 MG/2ML Inhalation Suspension INHALE 1 VIAL VIA NEBULIZER TWICE DAILY (dx:J44.9) * Quantity: 120 Refills: 0 Chris Ponce M.D.* Started ActiveIpratropium-Albuterol 0.5-2.5 (3) MG/3ML Inhalation Solution USE 1 VIAL IN NEBULIZER FOUR TIMES A DAY * Quantity: 180 Refills: 3 Harpal Morrell M.D.* Started 03-Apr-2010 ActiveBrovana 15 MCG/2ML Inhalation Nebulization Solution INHALE CONTENTS OF 1 AMPULE BY NEBULIZER EVERY 12 HOURS (Dx: J47.9/J44.9) * Quantity: 120 Refills: 5 Harpal Morrell M.D.* Started 21-Jun-2010 ActiveGentamicin 80 mg in 45cc of [place] Saline [place] 2 squirts each nostril TID * Quantity: 1 Refills: 0 Kevon Lang M.D.* Started 24-Oct-2010 ActiveCefuroxime Axetil 250 MG Oral Tablet TAKE 1 TABLET BY MOUTH TWICE DAILY FOR 10 DAYS EVERY 3 MONTHS * Quantity: 20 Refills: 33 Harpal Morrell M.D.* Started 03-Dec-2010 [employer] Home nebulizer unit, permanent use, Th=142 * Quantity: 1 Refills: 0 Harpal Morrell M.D.* Started 13-Aug-2012 ActiveOxygen Renew home concentrator=4 L at rest & 2 liters with [id number] resting oximetry=88% on room air; exercise oximetry on 5 liters=85% * Quantity: 1 Refills: 0 Solis, Love P.A.* Started 10-Dec-2012 ActiveOxygen Renew Portable O2 with conserver on 6 liters 8-12 hours a day with activity Exercise oximetry=81% on room air and 85% on 5 liters * Quantity: 1 Refills: 0 Solis, Love P.A.* Started 10-Dec-2012 ActiveOxygen Oxygen 4L 24 hours, 496, 494, permanent use, Concentrator plus portable system with conserver * Quantity: 1 Refills: 0 Harpal Morrell M.D.* Started 11-Jun-2013 [employer] CPAP at 14cm H20, repair, services and supplies, 327.23 Mask, headgear, filters , heated tubing, chinstrap * Quantity: 1 Refills: 0 Harpal Morrell M.D.* Started 19-Aug-2013 ActiveBudesonide 0.25 MG/2ML Inhalation Suspension USE 1 VIAL PER NEBULIZER TWICE DAILY (Dx: J47.9/J44.9) * Quantity: 120 Refills: 5 Harpal Morrell M.D.* Started 19-Aug-2013 [employer] nebulizer and supplies permanent use dx 496 * Quantity: 1 Refills: 0 Millie Gupta P.A.* Started 15-Nov-2013 [employer] CPAP repair, services, and supplies (dx=G47.33)Mask, headgear, filters, heated tubing, chinstrap * Quantity: 1 Refills: 0 Love Ely P.A.* Started 25-May-2015 ActiveMucus Relief ER 600 MG Oral Tablet Extended Release 12 Hour * Refills: 0 * Started 24-Nov-2015 [employer] Alarm for when the power goes out (he can't hear the soft alarm on his O2 concentrator) dx G47.33, J47.9, permanent use * Quantity: 1 Refills: 0 Millie Gupta P.A.* Started 24-Nov-2015 Active Allergies and Adverse Reactions Name Dates [...] #: [id number] Administered on: Influenza Lot #: [id number] Administered on:16-Mar-2009 Influenza Lot #: [id number] Administered on:02-May-2011 Influenza Lot #: [id number] Administered on:13-May-2013 Prevnar 13 Intramuscular Suspension Lot #: [id number] Administered on:12-Jul-2014 Social History Name Dates Details Smoking Status* Never smoker Vital Signs Date Test Result Details 24-Nov-2015 13:32 BP Systolic 122 mm[Hg] Status: BP Diastolic 71 mm[Hg] Status: Heart Rate 89 /min Status: Weight 176 lb Status: O2 SAT 91 % Status: FiO2 flow rate 2 L/min Status: Body Mass Index Calculated 25.25 kg/m2 Status: Body Surface Area Calculated 1.98 m2 Status: Results Date Description Value Details Results not documented Plan of Care Planned Observations* Name Dates Details Planned Goals not documented Goal Instructions * Instructions not documented Encounters Appointment; Harpal Morrell Encounter Diagnosis: Problem not documented On 24-Nov-2015 13:15 Appointment; Harpal Morrell Encounter Diagnosis: Problem not documented On 25-May-2015 11:15 Appointment; Harpal Morrell Encounter Diagnosis: Problem not documented On 14:45 Appointment; Harpal Morrell Encounter Diagnosis: Problem not documented On 12-Jul-2014 11:00 Appointment; Harpal Morrell Encounter Diagnosis: Problem not documented On 13:45
--- OUTSIDE RECORDS SUMMARY | 2016-12-02 22:16 | XMS REPORT | Continuity of Care Document ---
Author Author [facility] Organization [facility] Address Unknown Phone Unavailable Care Team Providers Care Operations Specialist Name Role Phone Adin Martinez MD [phone] Insurance Providers Payer Name Policy Number Subscriber Name Relationship Lyle Lucero [facility] Supp [id number] Kieran Lynch H 18 Self / Same As Patient [facility] Amerigrp [id number] Kieran Lynch H 18 Self / Same As Patient Medicare A And B [id number] Syed,Kieran H 18 Self / Same As Patient Advance [...] Procedure Code Date MEASURE BLOOD OXYGEN LEVEL 61151 EXTRACRANIAL BILAT STUDY 62379 12/21/12 Encounters Encounter Location Date/Time Departed Emergency Room [facility] 03/13/13 2:59am
--- NOTE | 2016-12-02 22:24 | ERPDOC ---
Departure Disposition Decision Date: December 02, 2016 Disposition Decision Time: 23:05 Disposition: 01 DISCHARGED HOME, SELF-CARE Impression Impression Impression: Primary Impression: COPD exacerbation Severity: Moderate Condition: Improved Seen By: Physician only Patient Instructions: COPD (Chronic Obstructive Pulmonary Disease) (ED) Problems/Meds/Labs Reviewed?: Yes Medications reviewed and manag: Yes Additional Instructions: Prednisone 20 mg, 2 tablets daily for 5 days Use albuterol or DuoNeb breathing treatments every 4-6 hours as needed for difficulty breathing See your bath house attendant later this week Follow up care ordered?: Yes Mental Status: Alert HPI - Dyspnea General Chief Complaint: Dyspnea/Respdistress Stated Complaint: DECREASED OXYGEN Time Seen by Provider: 22:13 Source: patient, EMS Exam Limitations: no limitations HPI - Dyspnea Initial Comments Increasing dyspnea with shortness of breath on exertion for the past one to 2 days, patient has also noticed increased cough and mucus production. Tonight while getting ready for bed, patient noticed that his oxygenation low, in the 70s, and his dyspnea was getting worse. Patient normally takes 4 L nasal cannula oxygen, and his hypoxemia occurred while on his routine 4 L. Rest, after sitting for a few minutes, the patient's oxygenation has returned to normal, but he is quite concerned since his oxygen level dropped so low. Occurred At: home Onset/Timing: Rapid Duration: 1-3 hrs Severity: moderate Prior Episodes/Possible Cause: occasional episodes Associated Symptoms: cough, shortness of breath, DENIES: chest pain, diaphoresis, fever/chills, headaches, loss of appetite, malaise, nausea/vomiting , rash, seizure, syncope, weakness Aspirin Treatment Today: unknown Hx of Similar Symptoms: Yes Allergies: Coded Allergies: ciprofloxacin (Unverified Allergy, Intermediate, 10/20/13) pt states pain/ stiffness Past History Past Medical History ENMT: sleep apnea Respiratory: COPD, other, pneumonia Vaccines Hx Influenza Vaccination: Yes (FALL 2012) Hx Pneumococcal Vaccination: Yes (WITHIN PAST 5 YEARS) Review of Systems Constitutional Constitutional: DENIES: appetite decrease, appetite increase, chills, dizziness , fever, weakness ENMT Ears: DENIES: pain Hearing: DENIES: hearing loss, tinnitus Balance: DENIES: vertigo Mouth/Throat: DENIES: change in swallowing, change in voice, hoarsness, painful swallowing, sore throat Cardiovascular Cardiac: DENIES: chest pain, dyspnea on exertion Rhythm/Rate: DENIES: irregular beat, palpitations, tachycardia Vascular: DENIES: pedal edema Pulmonary Respiratory: cough, dyspnea, pneumonia hx, sputum, DENIES: exposure to TB, hyperventilation, last PPD, pleuritic chest pain, recent risky activities, tachypnea GI Upper Abdomen: DENIES: dysphagia, heartburn/indigestion, nausea, pain, vomiting Lower Abdomen: DENIES: blood in stool, constipation, diarrhea, pain General: DENIES: burning, dysuria, frequency, pain, urgency Musculoskeletal General: DENIES: cramps, joint pain, joint swelling, pain, weakness Integumentary Skin: DENIES: rash, sores Neurological General: DENIES: headache, numbness, tingling, vertigo, weakness Physical Exam General General Nourishment: well nourished, well developed, appears stated age, no acute distress General Body Habitus: well groomed Vitals and Pain First Documented Vital Signs Date Time Temp Pulse Resp B/P Pulse Ox O2 Delivery O2 Flow Rate FiO2 12/02/16 22:15 98.6 77 24 193/88 96 Nasal Cannula 4.00 Weight: Kilograms: Height (feet): Height (inches): Triage Pain Scale: RN VS reviewed by Provider: Yes Normal Exams: Head: Normocephalic w/o trauma Eyes: Pupils are PERRLA w/ EOMI, No scleral icterus, irritation, or foreign bodies noted ENMT: No facial trauma, nasal exudates, pharyngeal erythema, or exudates are noted Neck: Full range of motion, without adenopathy, JVD, bruits or thyromegaly CV: Regular rate and rhythm, without murmur or gallop, Pulses 2+ all extremities, capillary refill, <2 seconds all ext., no pedal edema noted Abdomen: Bowel sounds positive, soft, non-tender, non-distended, no hepatosplenomegaly, masses or bruits noted Lymphatic: No lymphadenopathy, or lymphedema noted Musculoskeletal: No tenderness, or deformity noted, good range of motion, all extremities Integumentary: No rashes, hives, or bruising noted, hair and nails, without abnormality Neurologic: Patient is alert, and oriented, cranial nerves, motor/sensory/ cerebellar, exams w/o gross deficits, to observation Psychiatric: Patient exhibits, appropriate attention, emotion and affect Respiratory (brief) Respiratory: FOUND: equal bilaterally, symmetrical, wheezes, NOT FOUND: clear all shaw (course, mild wheezes bilaterally with coarse rhonchi), rales, tenderness Progress Results/Orders Orders Procedure Category Date Status Time Iv Lock (Ed Only) EDM 12/02/16 Transmitted 22:21 Cbc W/Auto LAB 12/02/16 Complete Diff-Reflex Manual Chest, Pa & Lateral RAD 12/02/16 Taken Albuterol/Ipratropium PHA 12/02/16 Complete (Duoneb) 22:30 Methylprednisolone PHA 12/02/16 Complete Sod Succ (Solu-Medrol 22:30 Lab Results Laboratory Tests Test 12/02/16 22:25 White Blood Count 7.5T/MM3 Red Blood Count 4.62M/MM3 Hemoglobin 13.3GM/DL Hematocrit 44.4% Mean Corpuscular Volume 96.1UM3 Mean Corpuscular Hemoglobin 28.8UUG Mean Corpuscular Hemoglobin Concent 30.0GM/DL RDW Standard Deviation 47.4FL Platelet Count 157T/MM3 Mean Platelet Volume 10.7UM3 Immature Granulocyte % (Auto) 0.1% Neutrophils (%) (Auto) 60.4% Lymphocytes (%) (Auto) 22.9% Monocytes (%) (Auto) 11.7% Eosinophils (%) (Auto) 4.8% Basophils (%) (Auto) 0.1% Absolute Immature Granulocyte (auto 0.01T/MM3 Absolute Neutrophils (auto) 4.5T/MM3 Absolute Lymphocytes (auto) 1.7T/MM3 Absolute Monocytes (auto) 0.9T/MM3 Absolute Eosinophils (auto) 0.4T/MM3 Absolute Basophils (auto) 0.0T/MM3 Medications Current ED Medications Albuterol/ Ipratropium (Duoneb) 6 ml O ONCE AEROSOL Last administered on 22:37; Start 12/02/16 at 22:30; Stop 12/02/16 at 22:31; Status DC Methylprednisolone Sodium Succinate (Solu-Medrol) 125 mg O ONCE IV Last administered on 12/02/16 22:55; Start 12/02/16 at 22:30; Stop 12/02/16 at 22:31 ; Status DC Progress Progress Patient given DuoNeb nebs 2, Solu-Medrol 125 mg IV - patient breathing much easier Chest x-ray - right fibrotic and interstitial lung disease only, no apparent acute consolidations CBC - normal We'll start patient on prednisone 40 mg daily for 5 days, and have the patient follow-up with his bath house attendant later this week BETTY CONTRERAS MD December 02, 2016 22:24
--- OUTSIDE RECORDS SUMMARY | 2016-12-02 22:24 | XMS REPORT | Continuity of Care Document ---
Author Author [facility] Address Unknown Phone Unavailable Allergies Active Description Code Type Severity Reaction Onset Reported/Identified Relationship to Patient Clinical Status Yes ciprofloxacin NKMA N/A Attacks Tendons 11/19/2013 Medications Problems Procedures Results Encounters ACCT No. Visit Date/Time Discharge Status Pt. Type Provider Facility Loc./Unit Complaint [id number] 05/31/2013 14:00:00 2012 00:01:00 DIS Outpatient [id number] 06/11/2013 12:50:00 2012 23:59:59 CLS Outpatient [id number] 03/13/2013 02:52:00 2012 23:59:59 CLS Outpatient [id number] 03/13/2013 02:59:00 2012 08:02:00 DIS Emergency
[2016-12-02] MEDS ORDERED: ALBUTEROL/IPRATROPIUM INHAL. 2.5mg-0.5mg/3ml Neb. AEROSOL ONE (22:30)
[2016-12-02 22:38] LABS: BASOPHILS % (AUTO) 0.1 % (0-2); EOSINOPHILS # (AUTO) 0.4 T/MM3 (0-0.5); EOSINOPHILS % (AUTO) 4.8 % (0-4); HCT - HEMATOCRIT 44.4 % (41-53); HGB - HEMOGLOBIN 13.3 GM/DL (13.5-17.5); IMMATURE GRANULOCYTE # (AUTO) 0.01 T/MM3 (0.00-0.03); IMMATURE GRANULOCYTE % (AUTO) 0.1 % (0.0-0.5); LYMPHOCYTES # (AUTO) 1.7 T/MM3 (1-4.8); LYMPHOCYTES % (AUTO) 22.9 % (23-45); MEAN CORPUSCULAR HGB 28.8 UUG (26-34); MEAN CORPUSCULAR VOLUME 96.1 UM3 (80-100); MEAN PLATELET VOLUME 10.7 UM3 (9.4-12.4); MONOCYTES # (AUTO) 0.9 T/MM3 (0-0.8); MONOCYTES % (AUTO) 11.7 % (0-9.0); NEUTROPHILS #(AUTO)-ABSOLUTE 4.5 T/MM3 (1.8-7.7); NEUTROPHILS % (AUTO) 60.4 % (33-66); RED BLOOD COUNT 4.62 M/MM3 (4.50-5.90); WBC - WHITE BLOOD COUNT 7.5 T/MM3 (4.5-11.0)
[2016-12-02] MEDS ORDERED: DOXY100C2 PO (23:09)
[2016-12-02] MEDS ORDERED: SULF1TAB42 PO (23:09)
[2016-12-02] MEDS ORDERED: [UNRECOGNIZED DRUG - CODE] PO (23:09)
[2016-12-02] MEDS ORDERED: PRAV20TA4 PO (23:13)
[2016-12-02] MEDS ORDERED: BUDE0.2510 AEROSOL (23:13)
[2016-12-02] MEDS ORDERED: ARFO15VI3 AEROSOL (23:13)
[2016-12-02 23:45] VITALS: BP 165/79; PULSE 68; RESP 18; TEMP 98.6; O2SAT 97
--- NOTE | 2016-12-03 08:05 | DI ---
INDICATION: ITS.REASON: cough, dyspnea PROCEDURE: CHEST 2-VIEWS UPRIGHT (PA \T\ LAT) Encounter: Initial COMPARISON: None FINDINGS: Multiple pulmonary abnormalities with bilateral apical pleural thickening or scarring and subpleural fibrotic changes. Bronchiectasis noted in the lower lobes with patchy areas of opacity and possible consolidation. No definite pleural effusion. No pneumothorax. Cardiac silhouette is upper limits of normal to mildly enlarged. Mediastinal contours are unremarkable. Pulmonary vascular markings are increased. Impression: Findings of severe pulmonary fibrosis. An underlying pneumonia or aspiration is quite difficult to exclude in the lower lobes. Recommend clinical and laboratory correlation. .
== END 2016-12-02 23:45 | disposition home or self-care (01) ==
LOC: ED 22:12
DX: J44.1 Chronic obstructive pulmonary disease with (acute) exacerbation (principal)
CPT/HCPCS: 71020; 85025; 94640; 96374; 99284; J2930

== ENCOUNTER 2017-02-25 08:41 | Inpatient (IN) ==
--- NOTE | 2017-02-25 08:58 | Emergency Department Report ---
General Adult HPI - General Chief complaint: Shortness of Breath/Dyspnea Stated complaint: Dyspnea; Blue Lips Time Seen by Provider: 02/25/17 08:49 Source: patient, EMS Mode of arrival: EMS Limitations: no limitations - History of Present Illness HPI narrative: 81-year-old male presents to the emergency department with a chief complaint of shortness of breath. Patient has a history of COPD and is on 4 L nasal cannula oxygen at all times. Patient has been experiencing shortness of breath with increasing severity over the past 12-15 hours. Patient notes a cough but not been bringing up any mucus. Patient states this feels like his prior COPD exacerbations. Patient was noted to be wheezing by EMS upon arrival and given an albuterol treatment with improvement of symptoms. Patient denies any pain or discomfort. Patient denies any other complaints or associated symptoms. Patient was at home when his symptoms began. Symptoms have been persistent in nature since onset. - Related Data Home Medications Medication Instructions Recorded Confirmed Tamsulosin HCl [Flomax] 0.4 mg PO HS #0 10/20/13 02/25/17 Arformoterol Neb [Brovana Neb] 1 vial AEROSOL BID #320 ml 12/02/16 02/25/17 Pravastatin Sodium 20 mg PO HS #0 tab 12/02/16 02/25/17 Sulfamethoxazole/Trimethoprim 1 tab PO BID #0 tab 12/02/16 02/25/17 [Bactrim Ds Tablet] cefUROXime axetil [Cefuroxime] 1 tab PO BID #0 12/02/16 02/25/17 Azithromycin [Zithromax] 500 mg PO DAILY 02/25/17 02/25/17 Budesonide [Budesonide] 0.25 mg AEROSOL BID 02/25/17 02/25/17 Furosemide [Lasix] 20 mg PO DAILY 02/25/17 02/25/17 Potassium Chloride ER Tab [K-Dur] 10 meq PO DAILY 02/25/17 02/25/17 guaiFENesin [Mucinex] 600 mg PO HS 02/25/17 02/25/17 Allergies Allergy/AdvReac Type Severity Reaction Status Date / Time ciprofloxacin Allergy Intermediate Verified 02/25/17 09:20 Penicillins Allergy Verified 02/25/17 09:20 Review of Systems Constitutional: Denies: fever, chills Eyes: Denies: eye pain, vision change ENT: Denies: ear pain, throat pain Cardiovascular: Denies: chest pain, palpitations Respiratory: Reports: cough, dyspnea, wheezes. Denies: hemoptysis Gastrointestinal: Denies: abdominal pain, nausea, vomiting, diarrhea Genitourinary: Denies: urgency, dysuria Musculoskeletal: Denies: back pain, arthralgia Integumentary: Denies: erythema, rash Neurological: Denies: headache, numbness Psychiatric: Denies: anxiety, depression Endocrine: Denies: fatigue, heat or cold intolerance Hematological/Lymphatic: Denies: easy bleeding, easy bruising Allergic/Immunologic: Denies: facial swelling, urticaria PFSH Patient Stated Medical History Chronic Obstructive Pulmonary Yes Disease (COPD) Other Musculoskeletal Yes: ARTHRITIS BILAT HANDS COPD, hyperlipidemia, sleep apnea Family History: Reviewed and noncontributory. - Social History Smoking status: Never smoker Substance use type: does not use Alcohol intake frequency: does not drink Physical Exam - Limitations Limitations: no limitations - General General appearance: alert, in no apparent distress - Normal Exams: Head:: Normocephalic without trauma Eyes:: Pupils are PERRLA w/ EOMI, No scleral icterus, irritation, or foreign bodies noted ENMT:: No facial trauma, nasal exudates, pharyngeal erythema, or exudates are noted Dental: No fractured, loose, or missing teeth noted Neck:: Full range of motion, without adenopathy, JVD, bruits or thyromegaly Chest/Respirations:: with good airflow, and symmetry bilaterally (Scattered end expiratory wheezes bilaterally. ) Cardiovascular:: Regular rate and rhythm, without murmur or gallop, Pulses 2+ all extremities, capillary refill, <2 seconds all extremities Abdomen:: Bowel sounds positive, soft, non-tender, non-distended, no hepatosplenomegaly, masses or bruits noted Lymphatic:: No lymphadenopathy, or lymphedema noted Musculoskeletal:: No tenderness, or deformity noted, good range of motion, all extremities Integumentary:: No rashes, hives, or bruising noted, hair and nails, without abnormality Neurological:: Patient is alert, and oriented, cranial nerves, motor/sensory/ cerebellar, exams w/o gross deficits, to observation Psychiatric:: Patient exhibits, appropriate attention, emotion and affect Course Vital Signs Temperature 97.8 F 02/25/17 08:45 Pulse Rate 84 02/25/17 08:45 Respiratory Rate 22 02/25/17 08:45 Blood Pressure 176/77 H 02/25/17 08:45 Pulse Oximetry 98 02/25/17 08:45 Temperature 97.2 F 02/25/17 11:06 Pulse Rate 81 02/25/17 11:18 Respiratory Rate 22 02/25/17 11:52 Blood Pressure 148/67 H 02/25/17 11:12 Pulse Oximetry 93 02/25/17 11:52 Medical Decision Making - MDM Narrative Medical decision making narrative: Labs/imaging were discussed in detail with the patient and questions are answered. Patient had his oxygen saturation fall to 68% with movement from EMS cot to the ED while on 4L NC. Patient improved with therapy to acceptable level of oxygenation in the emergency department. Patient is given DuoNeb treatments in the emergency Department. Patient is given Solu-Medrol 125 mg IV times one. Patient is given doxycycline 100 mg IV times one. Patient is treated for a COPD exacerbation at this time. Patient is admitted to the service of the hospitalist Dr. Summers in improved condition due to the hypoxia on a chronic home O2 settings. Patient is in agreement with the current plan of management. Patient is admitted to the hospital in improved condition. No further orders from accepting physician who is in agreement with the current plan of management. - Differential Diagnosis COPD, CHF, Metabolic disorder, PNA - Lab Data Result diagrams: 02/25/17 08:24 02/25/17 08:24 Lab Results 02/25/17 02/25/17 02/25/17 Range/Units 08:24 08:24 10:15 WBC 7.7 (4.5-11.0) T/MM3 RBC 4.46 L (4.50-5.90) M/MM3 Hgb 12.4 L (13.5-17.5) GM/DL Hct 43.5 (41-53) % MCV 97.5 (80-100) UM3 MCH 27.8 (26-34) UUG MCHC 28.5 L (31-37) GM/DL RDW Std Deviation 48.3 (36.9-50.2) FL Plt Count 141 (130-400) T/MM3 MPV 10.6 (9.4-12.4) UM3 Immature Gran % (Auto) 0.1 (0.0-0.5) % Neut % (Auto) 65.0 (33-66) % Lymph % (Auto) 19.7 L (23-45) % Swisher % (Auto) 11.7 H (0-9.0) % Eos % (Auto) 3.2 (0-4) % Baso % (Auto) 0.3 (0-2) % Neut # 5.0 (1.8-7.7) T/MM3 Lymph # 1.5 (1-4.8) T/MM3 Swisher # 0.9 H (0-0.8) T/MM3 Eos # 0.3 (0-0.5) T/MM3 Baso # 0.0 (0-0.2) T/MM3 Abs Immat Gran (auto) 0.01 (0.00-0.03) T/MM3 Turbidity < 20 (0-20) Sodium 146 H (134-144) MEQ/L Potassium 4.8 (3.6-5) MEQ/L Chloride 101 (98-107) MEQ/L Carbon Dioxide 41 H* (22-30) MEQ/L Anion Gap 4 L (5-15) MEQ/L BUN 24.0 H (9-20) MG/DL Creatinine 1.1 (0.8-1.5) MG/DL GFR Calculation 64 BUN/Creatinine Ratio 22 (6-26) RATIO Glucose 79 (75-110) MG/DL Calculated Osmolality 284 H (261-280) MOSM/KG Calcium 8.2 L (8.4-10.2) MG/DL Total Bilirubin 0.60 (0.20-1.30) MG/DL Icterus Index < 2 (0-7) AST 23 (17-59) U/L ALT 28 (21-72) U/L Alkaline Phosphatase 65 (38-126) U/L Troponin I < 0.012 (0-0.12) ng/ml Total Protein 6.9 (6.3-8.2) G/DL Albumin 3.9 (3.5-5.0) G/DL Globulin 3.0 (2.4-3.6) G/DL Albumin/Globulin Ratio 1.3 (1.1-2.2) RATIO Plasma Lactate 0.7 (0.6-2.2) MMOL/L Specimen Hemolysis 35 H (0-25) - Radiology Data CXR - No acute processes. - EKG Data EKG #1 EKG results narrative: Sinus rhythm. Left axis deviation. 83 bpm. No STEMI. Disposition Clinical Impression: COPD Exacerbation Disposition: To OBS [facility] [place] Condition: Stable Time of Disposition: 10:00 - Seen By: physician
--- NOTE | 2017-02-25 09:18 | XRay Report ---
Indication: SOB XR chest 1V: Comparison: 12/02/2016 Technique: Single view chest Findings: Patient continues to show extensive chronic lung changes with interstitial fibrosis similar to the prior study. The heart and mediastinum are also similar. No acute new bony findings are present. Impression: 1. Extensive but stable chronic interstitial fibrotic lung changes. 2. Stable cardiac appearance. .
[2017-02-25] MEDS ORDERED: ALBUTEROL/IPRATROPIUM 2.5mg-0.5mg/3ml NEB AEROSOL ONE (09:20)
[2017-02-25] MEDS ORDERED: METHYLPREDNISOLONE SOD SUCC 125mg/2ml INJECTION IVP ONE (10:07)
[2017-02-25] MEDS ORDERED: DOXYCYCLINE 100 MG in NS 250ml 250 ML IV ONE (10:11)
[2017-02-25] MEDS: SALINE FLUSH 10ml SYRINGE IVF PRN ×3 (10:18→21:23)
[2017-02-25] MEDS ORDERED: BUDESONIDE INH.SOLN 0.5mg/2ml NEB AEROSOL SCH (11:00)
[2017-02-25] MEDS ORDERED: ALBUTEROL/IPRATROPIUM 2.5mg-0.5mg/3ml NEB AEROSOL PRN (11:06)
[2017-02-25 11:19] VITALS: BMI 27.3
--- NOTE | 2017-02-25 11:22 | History & Physical Report ---
<Merced Rhodes V - Last Filed: 02/25/17 11:09> History of Present Illness Date: 02/25/17 Chief complaint: Dyspnea HPI: Mr Lynch is a pleasant 81-year-old gentleman who resides at [facility] under the care of Dr. Corona. Patient has a long-standing history of emphysema/ COPD had a pulmonary function study done on December 19 under the care of Dr. Ponce in which she was found to have stage III obstruction. He is chronically on 4 liters of oxygen by nasal cannula to maintain adequate saturations. Over the past 12-24 hours. He reports having increased shortness of breath with worsening cough. Due to these symptoms. EMS was contacted and transported patient to [facility] emergency room today for further evaluation and treatment. Basic laboratory studies were performed, white count was found to be normal, 7.7, hemoglobin 12.4, hematocrit 43.5, platelet count 141. Sodium is slightly high at 146, potassium 4.8, CO2 41, an in-depth 4, BUN 24, creatinine 1.1. Troponin undetectable. Venous lactate 0.7. Chest x-ray is obtained showing chronic interstitial fibrotic lung changes. No acute process. Due to his worsening hypoxia pulmonary comorbidities. The hospitalist services were contacted and accepted patient for outpatient admission for further eval patient and treatment. Is expected that his stay will be less than 2 overnights. Did review old records, it does appear that patient is taking a azithromycin, Cefuroxime and Bactrim DS. In reviewing external med system is appears that he rotates these 3 antibiotic. Instructions are to take Cefuroxime for 10 days every 3 months rotated with Bactrim . These are all under the care of Dr Harpal Morrell. Review of Systems Comprehensive ROS: completed and no additional positive findings except those as stated - Cardiovascular Cardiovascular: Present: edema (bilateral lower ext) - Respiratory Respiratory: Present: cough, dyspnea, dyspnea on exertion PFSH Past medical history COPD Pulmonary fibrosis Hyperlipidemia Sleep apnea Chronic oxygen use at 4 liters History of bladder cancer Surgical History: Tonsil and adenoidectomy. Hernia repair 2 Family History: Father was well and Lived to be 96 Mother unknown medical history - Social History Smoking status: Never smoker Substance use type: does not use Housing: residential Current occupational status: retired Current residence: [facility]Term ([facility]) Social history: Primary care Dr. Corona Pulmonology Dr. Morrell Medications Home Medications Medication Instructions Recorded Confirmed Type Tamsulosin HCl [Flomax] 0.4 mg PO HS #0 10/20/13 02/25/17 History Arformoterol Neb [Brovana Neb] 1 vial AEROSOL BID #320 ml 12/02/16 02/25/17 History Pravastatin Sodium 20 mg PO HS #0 tab 12/02/16 02/25/17 History Sulfamethoxazole/Trimethoprim 1 tab PO BID #0 tab 12/02/16 02/25/17 History [Bactrim Ds Tablet] cefUROXime axetil [Cefuroxime] 1 tab PO BID #0 12/02/16 02/25/17 History Azithromycin [Zithromax] 500 mg PO DAILY 02/25/17 02/25/17 History Budesonide [Budesonide] 0.25 mg AEROSOL BID 02/25/17 02/25/17 History Furosemide [Lasix] 20 mg PO DAILY 02/25/17 02/25/17 History Potassium Chloride ER Tab [K-Dur] 10 meq PO DAILY 02/25/17 02/25/17 History guaiFENesin [Mucinex] 600 mg PO HS 02/25/17 02/25/17 History Allergies Allergy/AdvReac Type Severity Reaction Status Date / Time ciprofloxacin Allergy Intermediate Verified 02/25/17 09:20 Penicillins Allergy Verified 02/25/17 09:20 Exam Vital Signs: Temperature 97.8 F 02/25/17 08:45 Pulse Rate 89 02/25/17 10:15 Respiratory Rate 28 H 02/25/17 08:59 Blood Pressure 148/66 H 02/25/17 10:30 Pulse Oximetry 96 02/25/17 10:30 Height: 1.8 m Weight: 88.2 kg - Constitutional Present: mild distress, well nourished, well developed - Routine HEENT Exam Head: Present: normocephalic, atraumatic Eye: Present: EOMI, PERRL ENT: Present: mucous membranes moist, dentition normal - Routine Respiratory Exam Present: respiratory distress (mild), crackles (course) - Routine Cardiovascular Exam Present: RRR, S1, S2, no murmur. Absent: murmur - Routine Abdominal Exam Present: soft, normoactive bowel sounds, non distended. Absent: tenderness - Routine Extremities Exam Present: edema (2+bilateral ext), normal capillary refill - Routine Back/Spine/Pelvis Exam Back/Spine: Present: full ROM - Routine Skin Exam Present: intact, dry, warm - Routine Neurological Exam Present: alert, oriented X3, CN II-XII intact - Routine Psychiatric Exam Present: normal affect, normal thought process Results - Labs CBC & Chem 7: 02/25/17 08:24 02/25/17 08:24 Assessment and Plan (1) COPD exacerbation Current visit: Yes Status: Acute (2) Acute and chronic respiratory failure Current visit: Yes Status: Acute (3) Pulmonary fibrosis Current visit: Yes Status: Acute DVT Prophylaxis: TERRANCE Hose Resuscitation Status: Full Code Assessment and Plan: Impression Acute on chronic respiratory failure COPD exacerbation Hypernatremia Pulmonary fibrosis Hyperlipidemia Sleep apnea Bladder cancer Plan Admit patient to outpatient observation under care of Dr. Stark for the above diagnoses. Will consult placed to respiratory therapy. Will continue with scheduled Pulmicort and DuoNeb treatments as well as home dose of Brovana Patient routinely takes Lasix 20 milligrams daily at home. Given the amount of lower extremity edema. Will increase this to 40 milligrams daily on admission. Will continue with Solu-Medrol 125 mg IV every 6 hours for pulmonary inflammation Obtain a viral respiratory panel on admission He is chronically on suppressive rotating PO antibiotics. Will continue with IV Doxycycline for pulmonary coverage. Terrance hose to bilateral lower extremities for compression given 2+ edema He does wish to be a full code and this order is written Will discuss further orders and plan of care with attending, Dr Stark At time of discharge medical care is to return to PCP Dr Corona Hospital Course Summary Disclaimer: The visit summary below is not to be considered part of the above Progress Note. Hospital Course: 02/25/17 - Admission Impression Acute on chronic respiratory failure COPD exacerbation Hypernatremia Pulmonary fibrosis Hyperlipidemia Sleep apnea Bladder cancer Plan Admit patient to outpatient observation under care of Dr. Stark for the above diagnoses. Will consult placed to respiratory therapy. Will continue with scheduled Pulmicort and DuoNeb treatments as well as home dose of Brovana Patient routinely takes Lasix 20 milligrams daily at home. Given the amount of lower extremity edema. Will increase this to 40 milligrams daily on admission. Will continue with Solu-Medrol 125 mg IV every 6 hours for pulmonary inflammation Obtain a viral respiratory panel on admission He is chronically on suppressive rotating PO antibiotics. Will continue with IV Doxycycline for pulmonary coverage. Terrance hose to bilateral lower extremities for compression given 2+ edema He does wish to be a full code and this order is written Will discuss further orders and plan of care with attending, Dr Stark At time of discharge medical care is to return to PCP Dr Corona <Derick Stark - Last Filed: 02/25/17 15:28> History of Present Illness Date: 02/25/17 [facility] Patient Stated Medical History Chronic Obstructive Pulmonary Yes Disease (COPD) Other Musculoskeletal Yes: ARTHRITIS BILAT HANDS Exam Vital Signs: Temperature 97.2 F 02/25/17 11:06 Pulse Rate 81 02/25/17 11:18 Respiratory Rate 22 02/25/17 11:52 Blood Pressure 148/67 H 02/25/17 11:12 Pulse Oximetry 93 02/25/17 11:52 Oxygen Delivery Method Nasal Cannula Oxygen Flow Rate 6 Height: 1.8 m Weight: 88.8 kg Results - Labs CBC & Chem 7: 02/25/17 08:24 02/25/17 08:24 Assessment and Plan (1) COPD exacerbation Current visit: Yes Status: Acute (2) Acute and chronic respiratory failure Current visit: Yes Status: Acute (3) Pulmonary fibrosis Current visit: Yes Status: Acute Assessment and Plan: Have independently interviewed and examined pt. Chart reviewed. Case discussed with ED physician and my APARTMENT COORDINATOR. Care plan developed with my supervision; agree with above. Presents to ED secondary to increasing SOA. For the past 3 days has woken up with low O2 saturations (upper 60s to low 70s) despite his O2 and CPAP. More winded in the morning. Today, not able to be up and ambulatory due to his severe SOA. Denies increased cough or congestion. No pain with breathing or chest pain. Silvia some palpitations at times. No f/c. Appetite stable. No acid reflux or choking with food. No urinary symptoms. Lungs: decreased and coarse bilaterally. CV: regular AB: soft nt/nd +BS EXT: +2 bilateral LE edema; SCD in place MSE: awake alert apropriate Plan: OBS. IV Solu-Medrol at 125mg q 6 hours to help decrease pulmonary inflammation. Neb treatments, acapella, and mucinex. Will continue Doxycycline for antimicrobial coverage-oral should be okay (so as not to give too much volume). Continue supplemental O2. SCD for DVT prevention. Monitor lab. - Time spent with patient greater than 35 minutes Hospital Course Summary Disclaimer: The visit summary below is not to be considered part of the above Progress Note.
[2017-02-25] MEDS ORDERED: ALBUTEROL/IPRATROPIUM 2.5mg-0.5mg/3ml NEB AEROSOL SCH (13:00)
[2017-02-25] MEDS: FUROSEMIDE 40 MG TABLET PO SCH (13:58)
[2017-02-25] MEDS: GUAIFENESIN/D-METHORPHAN 600mg/30mg TABLET PO SCH ×2 (14:02→21:25)
[2017-02-25] MEDS: METHYLPREDNISOLONE SOD SUCC 125mg/2ml INJECTION IVP SCH ×2 (15:11→21:23)
[2017-02-25] MEDS: BUDESONIDE INH.SOLN 0.5mg/2ml NEB AEROSOL SCH ×2 (15:27→19:24)
[2017-02-25] MEDS: ALBUTEROL/IPRATROPIUM 2.5mg-0.5mg/3ml NEB AEROSOL SCH ×2 (15:27→19:24)
[2017-02-25] MEDS: ARFORMOTEROL NEB 15mcg/2ml AEROSOL SCH (20:20)
[2017-02-25] MEDS: PRAVASTATIN 20 MG TABLET PO SCH (21:25)
[2017-02-25] MEDS: TAMSULOSIN 0.4 MG CAPSULE PO SCH (21:25)
[2017-02-26] MEDS: CEFTRIAXONE 1 G in NS 100 ML IV SCH ×2 (00:41→23:52)
[2017-02-26] MEDS: METHYLPREDNISOLONE SOD SUCC 125mg/2ml INJECTION IVP SCH ×4 (02:58→20:50)
[2017-02-26] MEDS: 1/2 NS 1,000 ML IV SCH ×2 (03:05→11:13)
[2017-02-26] MEDS: ARFORMOTEROL NEB 15mcg/2ml AEROSOL SCH ×2 (07:39→20:15)
[2017-02-26] MEDS: BUDESONIDE INH.SOLN 0.5mg/2ml NEB AEROSOL SCH ×2 (07:39→19:26)
[2017-02-26] MEDS: FUROSEMIDE 40 MG TABLET PO SCH (08:12)
[2017-02-26] MEDS: GUAIFENESIN/D-METHORPHAN 600mg/30mg TABLET PO SCH ×2 (08:12→20:51)
[2017-02-26] MEDS: ALBUTEROL/IPRATROPIUM 2.5mg-0.5mg/3ml NEB AEROSOL SCH ×5 (10:53→19:26)
--- NOTE | 2017-02-26 14:28 | Progress Note ---
<YenniMachelle Romy - Last Filed: 02/26/17 15:36> Subjective: Kieran is a bit better compared to yesterday, but still isn't back to normal. He was able to stand near the side of the bed to use the urinal today, which made him extremely SOA (though improved from yesterday). At home, he can walk 6-8 feet without getting too winded. Now, he doesn't feel like he'd be able to make it to the bathroom. He has a dry cough. He denies chest pain. He notes urinary frequency and incontinence - yesterday was going every 2 hours and today it seems like every 1 hour. He can't help but think that his urinary frequency is from drinking water instead of pepsi. Appetite is ok - doesn't like the sodium restriction. No mouth sores. Objective Vital signs: Temperature 99.0 F 02/26/17 07:32 Pulse Rate 84 02/26/17 08:00 Respiratory Rate 22 02/26/17 10:45 Blood Pressure 153/72 H 02/26/17 07:32 Pulse Oximetry 99 02/26/17 10:45 Oxygen Delivery Method Nasal Cannula Oxygen Flow Rate 6 Weight: 87.2 kg - Constitutional Present: mild distress, well nourished, well developed - Routine HEENT Exam Eye: Absent: conjunctival icterus, scleral injection ENT: Present: mucous membranes moist, oropharynx clear - Routine Respiratory Exam Present: accessory muscle use (mild), decreased breath sounds, rhonchi, wheezes , diminished air movement - Routine Cardiovascular Exam Present: RRR, S1, S2 - Routine Abdominal Exam Present: soft, normoactive bowel sounds, non distended, non tender - Routine Extremities Exam Present: no edema, pulses intact - Routine Musculoskeletal Exam Musculoskeletal: Present: moving extremities well ([place] but slight tremors when he holds his arms up) - Routine Skin Exam Present: intact, dry, warm - Routine Neurological Exam Present: alert, oriented X3, CN II-XII intact (grossly) - Routine Psychiatric Exam Present: normal affect, normal thought process Results - Labs CBC & Chem 7: 02/26/17 04:15 02/26/17 04:16 Assessment and Plan (1) COPD exacerbation Current visit: Yes Status: Acute (2) Acute and chronic respiratory failure Current visit: Yes Status: Acute (3) Pulmonary fibrosis Current visit: Yes Status: Acute Assessment and Plan: Impression Acute on chronic respiratory failure (baseline 4L oxygen) COPD exacerbation Hypernatremia - resolved Pulmonary fibrosis Hyperlipidemia Sleep apnea Bladder cancer - microscopic hematuria noted BPH Plan Little respiratory improvement - change status to inpatient. Continue IV steroids - Solu-Medrol 125 mg IV QID Still requiring 6L of oxygen (on 4L at home - lives in independent living) bicarb improved from 41 to 37 (even while on higher Lasix dose). Na also back to normal range. Continue doxycycline & Rocephin - consider de-escalating abx. Lactate cleared, now 1.9. Lower extremity edema appears to have improved. Weight is down 1 kg. Now also c/ o urinary frequency and increasing incontinence - consider decreasing Lasix to 30 mg. Renal status stable and K is holding steady. Consult PT/OT for pulm debility and myopathy secondary to acute illness. Sepsis Assessment - Evaluation Sepsis screening result: No Definite Risk Hospital Course Summary Disclaimer: The visit summary below is not to be considered part of the above Progress Note. Hospital Course: 02/25/17 - Admission Impression Acute on chronic respiratory failure COPD exacerbation Hypernatremia Pulmonary fibrosis Hyperlipidemia Sleep apnea Bladder cancer Plan Admit patient to outpatient observation under care of Dr. Stark for the above diagnoses. Will consult placed to respiratory therapy. Will continue with scheduled Pulmicort and DuoNeb treatments as well as home dose of Brovana Patient routinely takes Lasix 20 milligrams daily at home. Given the amount of lower extremity edema. Will increase this to 40 milligrams daily on admission. Will continue with Solu-Medrol 125 mg IV every 6 hours for pulmonary inflammation Obtain a viral respiratory panel on admission He is chronically on suppressive rotating PO antibiotics. Will continue with IV Doxycycline for pulmonary coverage. Dilan hose to bilateral lower extremities for compression given 2+ edema He does wish to be a full code and this order is written Will discuss further orders and plan of care with attending, Dr Stark At time of discharge medical care is to return to PCP Dr Corona 02/26/17 15:46 Little respiratory improvement - change status to inpatient. Continue IV steroids - Solu-Medrol 125 mg IV QID. Still requiring 6L of oxygen (on 4L at home - lives in independent living) bicarb improved from 41 to 37 (even while on higher Lasix dose). Na also back to normal range. Continue doxycycline & Rocephin - consider de-escalating abx. Lactate cleared, now 1.9. Lower extremity edema appears to have improved. Weight is down 1 kg. Now also c/ o urinary frequency and increasing incontinence - consider decreasing Lasix to 30 mg. Renal status stable and K is holding steady. Consult PT/OT for pulm debility and myopathy secondary to acute illness. <Derick Stark - Last Filed: 02/26/17 17:39> Objective Vital signs: Temperature 97.9 F 02/26/17 15:32 Pulse Rate 74 02/26/17 16:00 Respiratory Rate 20 02/26/17 15:32 Blood Pressure 145/63 H 02/26/17 15:32 Pulse Oximetry 92 02/26/17 15:32 Results - Labs CBC & Chem 7: 02/26/17 04:15 02/26/17 04:16 Assessment and Plan (1) COPD exacerbation Current visit: Yes Status: Acute (2) Acute and chronic respiratory failure Current visit: Yes Status: Acute (3) Pulmonary fibrosis Current visit: Yes Status: Acute DVT Prophylaxis: SCD's Resuscitation Status: Full Code Assessment and Plan: Have independently interviewed and examined pt. Chart reviewed. Case discussed with my KILN FIRER HELPER. Care plan developed with my supervision; agree with above. Feel is doing better today. Still notes SOA, O2 needs increased from baseline. Winds readily with activities. Has been urinating very often. No pain with urination. Denies ab pain or nausea. No f/c. Lungs: decreased, very course and fibrotic CV: regular AB: soft nt/nd MSE: awake alert appropriate Plan: Change to inpatient setting as respiratory status not to baseline. Will continue with Rocephin for pulmonary coverage; can stop Doxycycline. Continue Solu-Medrol, neb treatments, acapella, and mucinex. Will stop IVF. Decrease Lasix to home 20mg dose. Will HOLD potassium as K upper level of normal- continue to monitor potassium and serum sodium. PT/OT to help with functional status. Continue SCD to help with DVT prevention as well as decreasing LE edema. Hospital Course Summary Disclaimer: The visit summary below is not to be considered part of the above Progress Note.
[2017-02-26] MEDS: TAMSULOSIN 0.4 MG CAPSULE PO SCH ×2 (20:51→21:09)
[2017-02-26] MEDS: PRAVASTATIN 20 MG TABLET PO SCH ×2 (20:51→21:09)
[2017-02-26] MEDS: SALINE FLUSH 10ml SYRINGE IVF PRN (23:53)
[2017-02-27] MEDS: METHYLPREDNISOLONE SOD SUCC 125mg/2ml INJECTION IVP SCH ×3 (02:48→17:48)
[2017-02-27] MEDS: ALBUTEROL/IPRATROPIUM 2.5mg-0.5mg/3ml NEB AEROSOL SCH ×4 (08:19→20:20)
[2017-02-27] MEDS: BUDESONIDE INH.SOLN 0.5mg/2ml NEB AEROSOL SCH ×2 (08:19→20:20)
[2017-02-27] MEDS: GUAIFENESIN/D-METHORPHAN 600mg/30mg TABLET PO SCH ×2 (08:50→21:14)
[2017-02-27] MEDS: ARFORMOTEROL NEB 15mcg/2ml AEROSOL SCH ×2 (10:01→21:27)
--- NOTE | 2017-02-27 12:25 | Progress Note ---
<Machelle Hyman - Last Filed: 02/27/17 12:20> Subjective: Kieran is feeling much better today. His breathing is approaching baseline. His oxygen demands are decreasing. He was able to stand up and transfer himself to his bedside chair without much difficulty. He states he is also able to walk a few steps into the bathroom without becoming too winded. He denies any chest pain. He is still feeling very weak. He denies any abdominal pain or GI complaints. His urinary incontinence has improved since yesterday. Objective Vital signs: Temperature 95.8 F L 02/27/17 07:59 Pulse Rate 74 02/27/17 08:00 Respiratory Rate 16 02/27/17 08:19 Blood Pressure 175/90 H 02/27/17 07:59 Pulse Oximetry 96 02/27/17 12:00 Oxygen Delivery Method High Flow Nasal Cannula Oxygen Flow Rate 6 Weight: 86.5 kg - Constitutional Present: no acute distress, well nourished, well developed - Routine HEENT Exam Eye: Absent: conjunctival icterus, scleral injection ENT: Present: mucous membranes moist, oropharynx clear - Routine Respiratory Exam Present: decreased breath sounds, rhonchi - Routine Cardiovascular Exam Present: RRR, S1, S2 - Routine Abdominal Exam Present: soft, normoactive bowel sounds, non distended, non tender - Routine Extremities Exam Present: no edema, pulses intact - Routine Musculoskeletal Exam Musculoskeletal: Present: no joint swelling - Routine Skin Exam Present: intact, dry, warm - Routine Neurological Exam Present: alert, oriented X3 - Routine Psychiatric Exam Present: normal affect, cooperative, good insight, good judgment Results - Labs CBC & Chem 7: 02/27/17 04:26 02/27/17 04:26 Assessment and Plan (1) COPD exacerbation Current visit: Yes Status: Acute (2) Acute and chronic respiratory failure Current visit: Yes Status: Acute (3) Pulmonary fibrosis Current visit: Yes Status: Acute Assessment and Plan: Acute on chronic respiratory failure - improving COPD exacerbation - improving Leukocytosis Hyperkalemia, not present on admission Hypernatremia, present on admission Pulmonary fibrosis Hyperlipidemia Sleep apnea Bladder cancer Respiratory status is improving, and oxygen demands decreasing. Currently on 5 L , baseline is 4 L. Start tapering steroids. Possibly transition to oral steroids as soon as tomorrow, if he does well. Potassium increased to 5.4. Lasix has not been given yet today (placed on hold? ) - will resume at 20 mg., monitor renal status closely. BUN has been rising. Bicarbonate increased, yesterday - 37, today - 39. Consider Diamox. Recheck BMP this afternoon. Will discuss with attending. Leukocytosis - steroid effect likely. DC planning - certainly improving from a respiratory standpoint, but we'll need to correct hyperkalemia and ensure renal status remains stable. May need halfway at time of discharge. Sepsis Assessment - Evaluation Sepsis screening result: No Definite Risk Hospital Course Summary Disclaimer: The visit summary below is not to be considered part of the above Progress Note. Hospital Course: 02/25/17 - Admission Acute on chronic respiratory failure COPD exacerbation Hypernatremia Pulmonary fibrosis Hyperlipidemia Sleep apnea Bladder cancer Plan Admit patient to outpatient observation under care of Dr. Stark for the above diagnoses. Will consult placed to respiratory therapy. Will continue with scheduled Pulmicort and DuoNeb treatments as well as home dose of Brovana. IV solu-Medrol. Viral respiratory panel was negative. Increase Lasix to 40 milligrams daily. He is chronically on suppressive rotating PO antibiotics. Will continue with IV Doxycycline for pulmonary coverage. 02/26/17 Little respiratory improvement - change status to inpatient. Continue IV steroids - Solu-Medrol 125 mg IV QID. Still requiring 6L of oxygen (on 4L at home - lives in independent living) bicarb improved from 41 to 37 (even while on higher Lasix dose). Na also back to normal range. Continue doxycycline & Rocephin - consider de-escalating abx. Lactate cleared, now 1.9. Lower extremity edema appears to have improved. Weight is down 1 kg. Now also c/ o urinary frequency and increasing incontinence - consider decreasing Lasix to 30 mg. Renal status stable and K is holding steady. Consult PT/OT for pulm debility and myopathy secondary to acute illness. 02/27/17 Respiratory status is improving, and oxygen demands decreasing. Currently on 5 L , baseline is 4 L. Start tapering steroids. Possibly transition to oral steroids as soon as tomorrow, if he does well. Potassium increased to 5.4. Lasix has not been given yet today (placed on hold? ) - will resume at 20 mg., monitor renal status closely. BUN has been rising. Bicarbonate increased, yesterday - 37, today - 39. Consider Diamox. Leukocytosis - steroid effect likely. <LizzyPaty L - Last Filed: 02/27/17 18:54> Objective Vital signs: Temperature 95.8 F L 02/27/17 07:59 Pulse Rate 78 02/27/17 16:00 Respiratory Rate 18 02/27/17 15:39 Blood Pressure 159/75 H 02/27/17 15:46 Pulse Oximetry 95 02/27/17 15:46 Oxygen Delivery Method Nasal Cannula Oxygen Flow Rate 6 Results - Labs CBC & Chem 7: 02/27/17 04:26 02/27/17 15:18 Assessment and Plan (1) COPD exacerbation Current visit: Yes Status: Acute (2) Acute and chronic respiratory failure Current visit: Yes Status: Acute (3) Pulmonary fibrosis Current visit: Yes Status: Acute DVT Prophylaxis: SCD's Resuscitation Status: Full Code Assessment and Plan: I have independently evaluated and examined this patient. I reviewed the chart, the patient's history, and the RETAIL SHIFT SUPERVISOR/PA's documented findings as above. We discussed and formulated the assessment and plan as above with additions as below: Mr. Lynch reports his breathing is somewhat better today but continues to require more oxygen than usual. He is typically on 2-4 L supplemental oxygen at home and at present is on 6 L per nasal cannula. He describes a nonproductive cough. Patient is alert and in no distress. Oxygen saturation 89-90% when speaking. Respirations are nonlabored with good air flow but breath sounds are slightly coarse bilaterally. Leukocytosis consistent with steroids; patient has long-standing hypercarbia with HCO3 in the mid 30s 3 years ago by chart review. Blood pressures modestly elevated since admission, reassess after conversion to oral steroids. Electrolytes improved when reassess this afternoon but BUN up slightly. Chest x- ray reviewed by myself-no indication of heart failure but most suggestive of pulmonary fibrosis. Negative fluid balance from admission and weight is down slightly. Hospital Course Summary Disclaimer: The visit summary below is not to be considered part of the above Progress Note.
[2017-02-27] MEDS: PRAVASTATIN 20 MG TABLET PO SCH (21:13)
[2017-02-27] MEDS: TAMSULOSIN 0.4 MG CAPSULE PO SCH (21:13)
[2017-02-28] MEDS: CEFTRIAXONE 1 G in NS 100 ML IV SCH (00:40)
[2017-02-28] MEDS: METHYLPREDNISOLONE SOD SUCC 125mg/2ml INJECTION IVP SCH ×2 (00:41→09:34)
[2017-02-28] MEDS: BUDESONIDE INH.SOLN 0.5mg/2ml NEB AEROSOL SCH ×2 (07:43→20:00)
[2017-02-28] MEDS: ARFORMOTEROL NEB 15mcg/2ml AEROSOL SCH ×2 (07:43→18:54)
[2017-02-28] MEDS: ALBUTEROL/IPRATROPIUM 2.5mg-0.5mg/3ml NEB AEROSOL SCH ×5 (07:45→20:00)
[2017-02-28] MEDS: GUAIFENESIN/D-METHORPHAN 600mg/30mg TABLET PO SCH ×2 (09:34→22:43)
[2017-02-28] MEDS: SALINE FLUSH 10ml SYRINGE IVF PRN (09:34)
[2017-02-28] MEDS: FUROSEMIDE 20 MG TABLET PO SCH (09:34)
[2017-02-28] MEDS ORDERED: MENTHOL COUGH DROPS (RICOLA) MM PRN (17:15)
--- NOTE | 2017-02-28 17:15 | Progress Note ---
Subjective: Mr. Lynch reports that dyspnea continues to improve and that is having minimal cough or sputum. He has occasional paroxysms of cough and would like to have cough drops available if needed. He denied wheezing today. He continues to monitor oxygen levels closely and is looking into obtaining continuous oximetry for home use. He reports having had bowel movements overnight and denies nausea or vomiting. He's had no chest pain, reflux, fever, or lightheadedness. His appetite is good and he had no other concerns at this time. Objective Vital signs: Temperature 95.7 F L 02/28/17 15:00 Pulse Rate 80 02/28/17 16:00 Respiratory Rate 16 02/28/17 17:00 Blood Pressure 176/80 H 02/28/17 15:00 Pulse Oximetry 97 02/28/17 17:00 Oxygen Delivery Method Nasal Cannula Oxygen Flow Rate 5 EXAM General-NAD, alert, talkative HEENT-conjugate gaze, conjunctiva clear Lungs-respirations nonlabored with good airflow, breath sounds clear anteriorly and posteriorly Cardiac-regular rhythm, S1-S2 Abd-soft, nontender, bowel sounds present Ext-without edema Neuro-moving all extremities well Psych-slightly anxious - Weight: 85 kg Results - Labs CBC & Chem 7: 02/28/17 04:43 02/28/17 04:43 Assessment and Plan (1) COPD exacerbation Current visit: Yes Status: Acute (2) Acute and chronic respiratory failure Current visit: Yes Status: Acute (3) Pulmonary fibrosis Current visit: Yes Status: Acute DVT Prophylaxis: SCD's Assessment and Plan: Assessment: Acute on chronic hypoxic and hypercarbic respiratory failure (baseline 4L oxygen ) COPD exacerbation Leukocytosis, steroid-induced Hyperkalemia, not present on admission Hypernatremia - resolved, POA Hypertension Pulmonary fibrosis Hyperlipidemia Sleep apnea BPH Plan: Respiratory status remains stable; on 5 L supplemental O2 currently with oxygen saturations in the mid and upper 90s. Typically on 2 L oxygen at rest per patient report and 4 L with activities. Convert from IV Solu-Medrol to oral prednisone at 20 mg daily with first dose today. Check ABG in a.m.; patient minimally ambulatory or would pursue ambulatory oximetry. Day 3 of Rocephin, sputum culture reordered today and cough drops made available for patients use. Persistent hypercarbia, suspect long-standing due to underlying pulmonary disease. PCO2 to be obtained tomorrow morning. Patient using home CPAP equipment at night. Fluid balance stable and weight down from admission. Chest x-ray was not suggestive of heart failure on admission. Blood pressures modestly elevated since admission, reassess after conversion to oral steroids. Electrolytes stable, do not believe potassium supplement will be needed at discharge. Discussed with case management-investigating options for continuous oximetry at home per patient request. Sepsis Assessment - Evaluation Sepsis screening result: No Definite Risk Hospital Course Summary Disclaimer: The visit summary below is not to be considered part of the above Progress Note. Hospital Course: 02/25/17 - Admission Acute on chronic respiratory failure COPD exacerbation Hypernatremia Pulmonary fibrosis Hyperlipidemia Sleep apnea Bladder cancer Plan Admit patient to outpatient observation under care of Dr. Stark for the above diagnoses. Will consult placed to respiratory therapy. Will continue with scheduled Pulmicort and DuoNeb treatments as well as home dose of Brovana. IV solu-Medrol. Viral respiratory panel was negative. Increase Lasix to 40 milligrams daily. He is chronically on suppressive rotating PO antibiotics. Will continue with IV Doxycycline for pulmonary coverage. 02/26/17 Little respiratory improvement - change status to inpatient. Continue IV steroids - Solu-Medrol 125 mg IV QID. Still requiring 6L of oxygen (on 4L at home - lives in independent living) bicarb improved from 41 to 37 (even while on higher Lasix dose). Na also back to normal range. Continue doxycycline & Rocephin - consider de-escalating abx. Lactate cleared, now 1.9. Lower extremity edema appears to have improved. Weight is down 1 kg. Now also c/ o urinary frequency and increasing incontinence - consider decreasing Lasix to 30 mg. Renal status stable and K is holding steady. Consult PT/OT for pulm debility and myopathy secondary to acute illness. 02/27/17 Respiratory status is improving, and oxygen demands decreasing. Currently on 5 L , baseline is 4 L. Start tapering steroids. Possibly transition to oral steroids as soon as tomorrow, if he does well. Potassium increased to 5.4. Lasix has not been given yet today (placed on hold? ) - will resume at 20 mg., monitor renal status closely. BUN has been rising. Bicarbonate increased, yesterday - 37, today - 39. Consider Diamox. Leukocytosis - steroid effect likely. 02/28/17 17:31 Respiratory status remains stable; on 5 L supplemental O2 currently with oxygen saturations in the mid and upper 90s. Typically on 2 L oxygen at rest per patient report and 4 L with activities. Convert from IV Solu-Medrol to oral prednisone at 20 mg daily with first dose today. Check ABG in a.m.; patient minimally ambulatory or would pursue ambulatory oximetry. Day 3 of Rocephin, sputum culture reordered today and cough drops made available for patients use. Persistent hypercarbia, suspect long-standing due to underlying pulmonary disease. PCO2 to be obtained tomorrow morning. Patient using home CPAP equipment at night. Fluid balance stable and weight down from admission. Chest x-ray was not suggestive of heart failure on admission. Blood pressures modestly elevated since admission, reassess after conversion to oral steroids. Electrolytes stable, do not believe potassium supplement will be needed at discharge.
[2017-02-28] MEDS: PredniSONE 20 MG TABLET PO SCH (17:53)
[2017-02-28] MEDS: TAMSULOSIN 0.4 MG CAPSULE PO SCH (22:43)
[2017-02-28] MEDS: PRAVASTATIN 20 MG TABLET PO SCH (22:44)
[2017-03-01] MEDS: CEFTRIAXONE 1 G in NS 100 ML IV SCH (01:03)
[2017-03-01] MEDS: METHYLPREDNISOLONE SOD SUCC 125mg/2ml INJECTION IVP SCH (06:51)
[2017-03-01] MEDS: ARFORMOTEROL NEB 15mcg/2ml AEROSOL SCH ×2 (07:26→20:34)
[2017-03-01] MEDS: BUDESONIDE INH.SOLN 0.5mg/2ml NEB AEROSOL SCH ×2 (07:26→19:40)
[2017-03-01] MEDS: GUAIFENESIN/D-METHORPHAN 600mg/30mg TABLET PO SCH ×2 (08:30→21:45)
[2017-03-01] MEDS: PredniSONE 20 MG TABLET PO SCH (08:31)
[2017-03-01] MEDS: FUROSEMIDE 20 MG TABLET PO SCH (08:31)
[2017-03-01] MEDS: ALBUTEROL/IPRATROPIUM 2.5mg-0.5mg/3ml NEB AEROSOL SCH ×4 (09:40→19:40)
--- NOTE | 2017-03-01 13:03 | Progress Note ---
<Kenia South - Last Filed: 03/01/17 12:58> Subjective: Kieran is seen today in follow up. He is up in chair- we discussed the news at length. He reports that he has been wearing a CPAP for some time- he did have some questions about the numbers, but cannot tell me which setting he is referring to. He previously followed with Dr. Morrell in [facility]- now seeing Dr. Ponce. He reports that he is encouraged to understand how to titrate his oxygen at home. Continues to feel a bit SOA. Cough is noted during this visit. Chart reviewed for collateral information. Objective Vital signs: Temperature 96.8 F 03/01/17 08:22 Pulse Rate 89 03/01/17 08:57 Respiratory Rate 16 03/01/17 09:41 Blood Pressure 169/84 H 03/01/17 08:22 Pulse Oximetry 97 03/01/17 09:41 Oxygen Delivery Method Nasal Cannula Oxygen Flow Rate 6 Weight: 85.5 kg - Constitutional Present: no acute distress, well nourished, cooperative - Routine HEENT Exam Eye: Present: EOMI, PERRL ENT: Present: mucous membranes moist - Routine Respiratory Exam Present: dyspnea (Mild at rest. ), decreased breath sounds, rhonchi (Coarse throughout left lung shaw. ) - Routine Cardiovascular Exam Present: RRR, S1, S2 - Routine Abdominal Exam Present: soft, non distended, non tender - Routine Extremities Exam Present: no edema, non tender - Routine Musculoskeletal Exam Musculoskeletal: Present: no clubbing or cyanosis, moving extremities well, limited range of motion - Routine Skin Exam Present: intact, warm - Routine Neurological Exam Present: alert, oriented X3, moving all extremities - Routine Psychiatric Exam Present: normal affect, normal thought process, cooperative Results - Labs CBC & Chem 7: 03/01/17 04:46 03/01/17 04:46 Microbiology Results: Microbiology 02/28/17 19:21 Sputum, Expectorated Sputum Culture - Preliminary Early growth - ABG Interpretation ABG results: 03/01/17 07:20 ABG pH 7.340 L ABG pCO2 90 H* ABG pO2 96 ABG HCO3 49 H ABG Total CO2 51.4 H ABG O2 Saturation 97.0 ABG Base Excess 18.4 H Assessment and Plan (1) COPD exacerbation Current visit: Yes Status: Acute (2) Acute and chronic respiratory failure Current visit: Yes Status: Acute (3) Pulmonary fibrosis Current visit: Yes Status: Acute (4) Sleep apnea Current visit: Yes Status: Chronic (5) HLD (hyperlipidemia) Current visit: Yes Status: Chronic (6) HTN (hypertension) Current visit: Yes Status: Chronic (7) BPH (benign prostatic hyperplasia) Current visit: Yes Status: Chronic DVT Prophylaxis: SCD's GI Prophylaxis: other Resuscitation Status: Full Code Assessment and Plan: Assessment: Acute on chronic hypoxic and hypercarbic respiratory failure (baseline 4L oxygen ) COPD exacerbation Leukocytosis, steroid-induced Hyperkalemia, not present on admission Hypernatremia - resolved, POA Hypertension Pulmonary fibrosis Hyperlipidemia Sleep apnea BPH Plan: 03/01/17- Patient continues slow improvement. Continues to require 5-6L/NC currently. He reports that he understands not to over titrate his O2. Continue PO steroids, Ceftriaxone d #4. He is on an antibiotic rotation at home per his prior hand profiler. (now sees Dr. Ponce). Continue inhaled medications as well. Home CPAP is now being used- it may be a Bipap as he reports it "kicks in" after he doesnt take a breath for a few seconds. BP is elevated- will add Norvasc for control. He does have conduction delay on EKG- avoid beta-blockers for now. His labs remain a bit dry- Hold Lasix and KCl for now. Continue Flomax for BPH. Slow progress. Will return to on DC under the care of DR. Corona. - Time spent with patient 25 - 35 minutes Sepsis Assessment - Evaluation Sepsis screening result: No Definite Risk Hospital Course Summary Disclaimer: The visit summary below is not to be considered part of the above Progress Note. Hospital Course: 02/25/17 - Admission Acute on chronic respiratory failure COPD exacerbation Hypernatremia Pulmonary fibrosis Hyperlipidemia Sleep apnea Bladder cancer Plan Admit patient to outpatient observation under care of Dr. Stark for the above diagnoses. Will consult placed to respiratory therapy. Will continue with scheduled Pulmicort and DuoNeb treatments as well as home dose of Brovana. IV solu-Medrol. Viral respiratory panel was negative. Increase Lasix to 40 milligrams daily. He is chronically on suppressive rotating PO antibiotics. Will continue with IV Doxycycline for pulmonary coverage. 02/26/17 Little respiratory improvement - change status to inpatient. Continue IV steroids - Solu-Medrol 125 mg IV QID. Still requiring 6L of oxygen (on 4L at home - lives in independent living) bicarb improved from 41 to 37 (even while on higher Lasix dose). Na also back to normal range. Continue doxycycline & Rocephin - consider de-escalating abx. Lactate cleared, now 1.9. Lower extremity edema appears to have improved. Weight is down 1 kg. Now also c/ o urinary frequency and increasing incontinence - consider decreasing Lasix to 30 mg. Renal status stable and K is holding steady. Consult PT/OT for pulm debility and myopathy secondary to acute illness. 02/27/17 Respiratory status is improving, and oxygen demands decreasing. Currently on 5 L , baseline is 4 L. Start tapering steroids. Possibly transition to oral steroids as soon as tomorrow, if he does well. Potassium increased to 5.4. Lasix has not been given yet today (placed on hold? ) - will resume at 20 mg., monitor renal status closely. BUN has been rising. Bicarbonate increased, yesterday - 37, today - 39. Consider Diamox. Leukocytosis - steroid effect likely. 02/28/17 17:31 Respiratory status remains stable; on 5 L supplemental O2 currently with oxygen saturations in the mid and upper 90s. Typically on 2 L oxygen at rest per patient report and 4 L with activities. Convert from IV Solu-Medrol to oral prednisone at 20 mg daily with first dose today. Check ABG in a.m.; patient minimally ambulatory or would pursue ambulatory oximetry. Day 3 of Rocephin, sputum culture reordered today and cough drops made available for patients use. Persistent hypercarbia, suspect long-standing due to underlying pulmonary disease. PCO2 to be obtained tomorrow morning. Patient using home CPAP equipment at night. Fluid balance stable and weight down from admission. Chest x-ray was not suggestive of heart failure on admission. Blood pressures modestly elevated since admission, reassess after conversion to oral steroids. Electrolytes stable, do not believe potassium supplement will be needed at discharge. 03/01/17 13:23 03/01/17- Patient continues slow improvement. Continues to require 5-6L/NC currently. He reports that he understands not to over titrate his O2. Continue PO steroids, Ceftriaxone d #4. He is on an antibiotic rotation at home per his prior hand profiler. (now sees Dr. Ponce). Continue inhaled medications as well. Home CPAP is now being used- it may be a Bipap as he reports it "kicks in" after he doesnt take a breath for a few seconds. BP is elevated- will add Norvasc for control. He does have conduction delay on EKG- avoid beta-blockers for now. His labs remain a bit dry- Hold Lasix and KCl for now. Continue Flomax for BPH. Slow progress. Will return to on DC under the care of DR. Corona. <LizzyPaty farley Little - Last Filed: 03/01/17 16:31> Objective Vital signs: Temperature 96.5 F L 03/01/17 15:56 Pulse Rate 96 03/01/17 15:56 Respiratory Rate 18 03/01/17 15:56 Blood Pressure 139/65 03/01/17 15:56 Pulse Oximetry 93 03/01/17 15:56 Oxygen Delivery Method Nasal Cannula Oxygen Flow Rate 4 Results - Labs CBC & Chem 7: 03/01/17 04:46 03/01/17 04:46 Microbiology Results: Microbiology 02/28/17 19:21 Sputum, Expectorated Sputum Culture - Preliminary Early growth - ABG Interpretation ABG results: 03/01/17 07:20 ABG pH 7.340 L ABG pCO2 90 H* ABG pO2 96 ABG HCO3 49 H ABG Total CO2 51.4 H ABG O2 Saturation 97.0 ABG Base Excess 18.4 H Assessment and Plan (1) COPD exacerbation Current visit: Yes Status: Acute (2) Acute and chronic respiratory failure Current visit: Yes Status: Acute (3) Pulmonary fibrosis Current visit: Yes Status: Acute (4) Sleep apnea Current visit: Yes Status: Chronic (5) HLD (hyperlipidemia) Current visit: Yes Status: Chronic (6) HTN (hypertension) Current visit: Yes Status: Chronic (7) BPH (benign prostatic hyperplasia) Current visit: Yes Status: Chronic Assessment and Plan: I have independently evaluated and examined this patient. I reviewed the chart, the patient's history, and the GROUP LE[employer]ING/PA's documented findings as above. We discussed and formulated the assessment and plan as above with additions as below: Mr. Lynch reports that his breathing continues to improve and that there is minimal sputum production although he continues to have cough. He remains focused on need to obtain continuous oximetry with an alarm for home use. He reports his head CPAP at home for many years and that he uses it faithfully with 4 L supplemental oxygen. While awake he is typically on 2 L supplemental O2. He denied concerns unrelated to his breathing including fevers, lightheadedness, or nausea. Nursing/PT ambulated the patient in the flores yesterday afternoon and reported oxygen saturation dropped to approximately 67% with supplemental O2 on and heart rate increased to 150 after short distance. Respirations are nonlabored, air flow is diminished throughout but breath sounds are clear Regular cardiac rhythm Minor myoclonic jerking in the upper extremities present today-after breathing treatment Abdomen obese, soft, nontender Blood gas as noted-fairly well compensated hypercarbic respiratory failure; resume ventilatory assistance at night with BiPAP during hospitalization. Supplemental oxygen titrated to 3 L at rest today, hypoxia improving progressively. Day 4 ceftriaxone. Sputum culture reported with early growth, no Gram stain reported out-lab notified. Plan repeat blood gas Friday morning and potentially home at that time. Chest x-ray in a.m. Hospital Course Summary Disclaimer: The visit summary below is not to be considered part of the above Progress Note.
[2017-03-01] MEDS: AMLODIPINE 2.5 MG TABLET PO SCH (14:08)
[2017-03-01] MEDS ORDERED: GUAIFENESIN/D-METHORPHAN 600mg/30mg TABLET PO SCH (19:45)
[2017-03-01] MEDS: TAMSULOSIN 0.4 MG CAPSULE PO SCH (21:45)
[2017-03-01] MEDS: PRAVASTATIN 20 MG TABLET PO SCH (21:45)
[2017-03-01] MEDS ORDERED: GUAIFENESIN LA 600 MG TABLET PO SCH (22:00)
[2017-03-02] MEDS: CEFTRIAXONE 1 G in NS 100 ML IV SCH ×2 (00:32→23:51)
[2017-03-02] MEDS: GUAIFENESIN/D-METHORPHAN 600mg/30mg TABLET PO SCH ×3 (04:59→21:12)
[2017-03-02] MEDS: BUDESONIDE INH.SOLN 0.5mg/2ml NEB AEROSOL SCH ×2 (08:08→19:10)
[2017-03-02] MEDS: ALBUTEROL/IPRATROPIUM 2.5mg-0.5mg/3ml NEB AEROSOL SCH ×4 (08:08→19:10)
[2017-03-02] MEDS: AMLODIPINE 2.5 MG TABLET PO SCH (09:40)
[2017-03-02] MEDS: PredniSONE 20 MG TABLET PO SCH (09:40)
[2017-03-02] MEDS: ARFORMOTEROL NEB 15mcg/2ml AEROSOL SCH ×2 (09:49→20:20)
--- NOTE | 2017-03-02 12:10 | XRay Report ---
Indication: COPD PROCEDURE: XR chest 2V: Encounter: Subsequent Comparison: 02/25/2017, 12/02/2016 Findings: 2 views of the chest demonstrates continued chronic fibrotic changes particularly in the basal regions as well as peripherally in the left upper lobe. There is biapical pleural thickening without underlying rib destruction, stable. Left hemidiaphragmatic elevation, stable. The heart is not significantly enlarged. No widening of the vascular pedicle nor is there evidence of significant pulmonary vascular engorgement. IMPRESSION: Extensive chronic lung changes without appreciable change since the reference study. .
--- NOTE | 2017-03-02 12:34 | Progress Note ---
<Machelle Hyman Romy - Last Filed: 03/02/17 12:31> Subjective: Kieran is doing well. He feels like his breathing is nearly back to baseline. He rested well last night and has no new complaints. Objective Vital signs: Temperature 98.2 F 03/02/17 09:38 Pulse Rate 99 03/02/17 09:38 Respiratory Rate 20 03/02/17 11:54 Blood Pressure 131/67 03/02/17 09:38 Pulse Oximetry 93 03/02/17 11:54 Oxygen Delivery Method Nasal Cannula Oxygen Flow Rate 3 Weight: 85.5 kg - Constitutional Present: no acute distress, well nourished, well developed - Routine HEENT Exam ENT: Absent: oropharynx clear (thrush on roof of mouth) - Routine Respiratory Exam Present: decreased breath sounds, rhonchi, wheezes - Routine Cardiovascular Exam Present: RRR, S1, S2 - Routine Abdominal Exam Present: soft, normoactive bowel sounds, non distended, non tender - Routine Extremities Exam Present: edema (trace around ankles), pulses intact - Routine Back/Spine/Pelvis Exam Back/Spine: Absent: vertebral tenderness - Routine Musculoskeletal Exam Musculoskeletal: Present: moving extremities well - Routine Skin Exam Present: intact, dry, warm - Routine Neurological Exam Present: alert, oriented X3 - Routine Psychiatric Exam Present: normal affect, normal thought process, cooperative Results - Labs CBC & Chem 7: 03/02/17 04:46 03/02/17 04:46 Microbiology Results: Microbiology 02/28/17 19:21 Sputum, Expectorated Gram Stain - Final 02/28/17 19:21 Sputum, Expectorated Sputum Culture - Preliminary Early growth - ABG Interpretation ABG results: 03/01/17 07:20 ABG pH 7.340 L ABG pCO2 90 H* ABG pO2 96 ABG HCO3 49 H ABG Total CO2 51.4 H ABG O2 Saturation 97.0 ABG Base Excess 18.4 H Assessment and Plan (1) COPD exacerbation Current visit: Yes Status: Acute (2) Acute and chronic respiratory failure Current visit: Yes Status: Acute (3) Pulmonary fibrosis Current visit: Yes Status: Acute (4) Sleep apnea Current visit: Yes Status: Chronic (5) HLD (hyperlipidemia) Current visit: Yes Status: Chronic (6) HTN (hypertension) Current visit: Yes Status: Chronic (7) BPH (benign prostatic hyperplasia) Current visit: Yes Status: Chronic Assessment and Plan: Assessment: Acute on chronic hypoxic and hypercarbic respiratory failure (baseline 4L O2). Blood gas-fairly well compensated hypercarbic respiratory failure COPD exacerbation Leukocytosis, steroid-induced Hyperkalemia, not POA, resolved Hypernatremia - POA Thrush, Nystatin started 03/02/17 Hypertension Pulmonary fibrosis Hyperlipidemia Sleep apnea - CPAP use BPH Plan: COPD exacerbation: Continue prednisone 40 mg daily. Ceftriaxone day #5. Will need to follow-up with film processing supervisor Dr. Ponce in outpt setting - may need to adjust CPAP settings. Sputum gram stain grew out normal respiratory sandy. Electrolytes - mild hypernatremia; K stable at 4.1. BUN trending down. Continue to hold Lasix and KDur. Start Nystatin for thrush. Hopefully will be able to DC to SNF tomorrow. Sepsis Assessment - Evaluation Sepsis screening result: No Definite Risk Hospital Course Summary Disclaimer: The visit summary below is not to be considered part of the above Progress Note. Hospital Course: 02/25/17 - Admission Acute on chronic respiratory failure COPD exacerbation Hypernatremia Pulmonary fibrosis Hyperlipidemia Sleep apnea Bladder cancer Plan Admit patient to outpatient observation under care of Dr. Stark for the above diagnoses. Will consult placed to respiratory therapy. Will continue with scheduled Pulmicort and DuoNeb treatments as well as home dose of Brovana. IV solu-Medrol. Viral respiratory panel was negative. Increase Lasix to 40 milligrams daily. He is chronically on suppressive rotating PO antibiotics. Will continue with IV Doxycycline for pulmonary coverage. 02/26/17 Little respiratory improvement - change status to inpatient. Continue IV steroids - Solu-Medrol 125 mg IV QID. Still requiring 6L of oxygen (on 4L at home - lives in independent living) bicarb improved from 41 to 37 (even while on higher Lasix dose). Na also back to normal range. Continue doxycycline & Rocephin - consider de-escalating abx. Lactate cleared, now 1.9. Lower extremity edema appears to have improved. Weight is down 1 kg. Now also c/ o urinary frequency and increasing incontinence - consider decreasing Lasix to 30 mg. Renal status stable and K is holding steady. Consult PT/OT for pulm debility and myopathy secondary to acute illness. 02/27/17 Respiratory status is improving, and oxygen demands decreasing. Currently on 5 L , baseline is 4 L. Start tapering steroids. Possibly transition to oral steroids as soon as tomorrow, if he does well. Potassium increased to 5.4. Lasix has not been given yet today (placed on hold? ) - will resume at 20 mg., monitor renal status closely. BUN has been rising. Bicarbonate increased, yesterday - 37, today - 39. Consider Diamox. Leukocytosis - steroid effect likely. 02/28/17 17:31 Respiratory status remains stable; on 5 L supplemental O2 currently with oxygen saturations in the mid and upper 90s. Typically on 2 L oxygen at rest per patient report and 4 L with activities. Convert from IV Solu-Medrol to oral prednisone at 20 mg daily with first dose today. Check ABG in a.m.; patient minimally ambulatory or would pursue ambulatory oximetry. Day 3 of Rocephin, sputum culture reordered today and cough drops made available for patients use. Persistent hypercarbia, suspect long-standing due to underlying pulmonary disease. PCO2 to be obtained tomorrow morning. Patient using home CPAP equipment at night. Fluid balance stable and weight down from admission. Chest x-ray was not suggestive of heart failure on admission. Blood pressures modestly elevated since admission, reassess after conversion to oral steroids. Electrolytes stable, do not believe potassium supplement will be needed at discharge. 03/01/17 Patient continues slow improvement. Continues to require 5-6L/NC currently. He reports that he understands not to over titrate his O2. He is on an antibiotic rotation at home per his prior film processing supervisor. (now sees Dr. Ponce) BP is elevated- will add Norvasc for control. He does have conduction delay on EKG- avoid beta-blockers for now. His labs remain a bit dry- Hold Lasix and KCl for now. 03/02/17 COPD exacerbation: Continue prednisone 40 mg daily. Ceftriaxone day #5. Will need to follow-up with film processing supervisor Dr. Ponce in outpt setting - may need to adjust CPAP settings. Sputum gram stain grew out normal respiratory sandy. Electrolytes - mild hypernatremia; K stable at 4.1. BUN trending down. Continue to hold Lasix and KDur. Start Nystatin for thrush. <Paty Ball Last Filed: 03/02/17 15:32> Objective Vital signs: Temperature 98.2 F 03/02/17 09:38 Pulse Rate 99 03/02/17 09:38 Respiratory Rate 18 03/02/17 15:27 Blood Pressure 131/67 03/02/17 09:38 Pulse Oximetry 93 03/02/17 15:28 Oxygen Delivery Method Nasal Cannula Oxygen Flow Rate 2 Results - Labs CBC & Chem 7: 03/02/17 04:46 03/02/17 04:46 Microbiology Results: Microbiology 02/28/17 19:21 Sputum, Expectorated Gram Stain - Final 02/28/17 19:21 Sputum, Expectorated Sputum Culture - Preliminary Normal Respiratory Sandy - ABG Interpretation ABG results: 03/01/17 07:20 ABG pH 7.340 L ABG pCO2 90 H* ABG pO2 96 ABG HCO3 49 H ABG Total CO2 51.4 H ABG O2 Saturation 97.0 ABG Base Excess 18.4 H Assessment and Plan (1) COPD exacerbation Current visit: Yes Status: Acute (2) Acute and chronic respiratory failure Current visit: Yes Status: Acute (3) Pulmonary fibrosis Current visit: Yes Status: Acute (4) Sleep apnea Current visit: Yes Status: Chronic (5) HLD (hyperlipidemia) Current visit: Yes Status: Chronic (6) HTN (hypertension) Current visit: Yes Status: Chronic (7) BPH (benign prostatic hyperplasia) Current visit: Yes Status: Chronic Resuscitation Status: Full Code Assessment and Plan: I have independently evaluated and examined this patient. I reviewed the chart, the patient's history, and the WHEEL AND PINION INSPECTOR/PA's documented findings as above. We discussed and formulated the assessment and plan as above with additions as below: Mr. Lynch reports that he is generally feeling well. He denied dyspnea and reports that cough was getting looser. Sputum culture was finalized normal sandy. Patient did not tolerate hospital CPAP well last night due to use of facemask-at home he typically uses nasal CPAP. Subsequently ventilatory assistance was used for only short period of time overnight. He did not think anyone would be able to bring home equipment in for use tonight but is willing to try the hospital's equipment again tonight. Patient is alert and in no distress, occasional nonproductive cough is present. Respirations are nonlabored with diminished airflow throughout but no wheezing or rhonchi are appreciated. Repeat blood gas in the morning. CPAP settings discussed with RT-will attempt slightly higher pressures as patient reports home CPAP set at 14. Oxygen at rest has been titrated back to 2 L consistent with home setting with oxygen saturation maintained at 93%. Discharge anticipated tomorrow. Hospital Course Summary Disclaimer: The visit summary below is not to be considered part of the above Progress Note.
[2017-03-02] MEDS: NYSTATIN 500,000 units/5 ml ORAL LIQUID PO SCH ×4 (13:58→21:12)
[2017-03-02] MEDS: TAMSULOSIN 0.4 MG CAPSULE PO SCH (21:12)
[2017-03-02] MEDS: PRAVASTATIN 20 MG TABLET PO SCH (21:13)
[2017-03-02] MEDS: SALINE FLUSH 10ml SYRINGE IVF PRN (21:13)
[2017-03-03] MEDS ORDERED: NS FLUSH BAG 500ml IV PRN (00:07)
[2017-03-03] MEDS: SALINE FLUSH 10ml SYRINGE IVF PRN (05:54)
[2017-03-03] MEDS: ALBUTEROL/IPRATROPIUM 2.5mg-0.5mg/3ml NEB AEROSOL SCH ×3 (07:14→15:56)
[2017-03-03] MEDS: BUDESONIDE INH.SOLN 0.5mg/2ml NEB AEROSOL SCH (07:15)
[2017-03-03 07:37] VITALS: BP 161/78; PULSE 76; TEMP 97.1
[2017-03-03] MEDS: NYSTATIN 500,000 units/5 ml ORAL LIQUID PO SCH ×2 (08:19→12:26)
[2017-03-03] MEDS: PredniSONE 20 MG TABLET PO SCH (08:19)
[2017-03-03] MEDS: AMLODIPINE 2.5 MG TABLET PO SCH (08:20)
[2017-03-03] MEDS: GUAIFENESIN/D-METHORPHAN 600mg/30mg TABLET PO SCH (08:20)
[2017-03-03] MEDS: ARFORMOTEROL NEB 15mcg/2ml AEROSOL SCH (10:48)
[2017-03-03 10:51] VITALS: RESP 18
--- NOTE | 2017-03-03 13:56 | Discharge Summary ---
<YenniMachelle D - Last Filed: 03/03/17 14:25> Discharge Information Date of admission: 02/26/17 15:36 Anticipated date of discharge: 03/03/17 Attending Physician: Paty Ball MD Primary care physician: Rosanna Corona MD - Discharge Diagnosis Discharge Diagnosis: COPD exacerbation. Acute on chronic respiratory failure. Thrush - Procedures Procedures: EKG on 02/25/17: Sinus rhythm with left axis deviation. Repeat EKG on 03/03/17: No acute changes. - Laboratory Labs: 03/03/17 04:42 03/03/17 04:42 - Microbiology Microbiology 02/28/17 19:21 Sputum, Expectorated Gram Stain - Normal Respiratory Sandy - Radiology Radiology: Chest x-ray on 02/25/17: Extensive but stable chronic interstitial fibrotic lung changes. Repeat chest x-ray on 03/02/17: No changes. History of Present Illness HPI: Mr Lynch is a pleasant 81-year-old gentleman who resides at [facility] under the care of Dr. Corona. Patient has a long-standing history of emphysema/ COPD had a pulmonary function study done on December 19 under the care of Dr. Ponce in which he was found to have stage III obstruction. He is chronically on 4 liters of oxygen. Over the past 12-24 hours, he reports having increased shortness of breath with worsening cough. EMS was contacted and transported patient to the emergency room. Basic laboratory studies were performed, white count was found to be normal, 7.7, hemoglobin 12.4, hematocrit 43.5, platelet count 141. Sodium is slightly high at 146, potassium 4.8, CO2 41, an in-depth 4 , BUN 24, creatinine 1.1. Troponin undetectable. Venous lactate 0.7. Chest x- ray is obtained showing chronic interstitial fibrotic lung changes. Due to his worsening hypoxia pulmonary comorbidities, the hospitalist service was contacted and accepted patient for outpatient admission. Is expected that his stay will be less than 2 overnights. Did review old records, it does appear that patient is taking a azithromycin, Cefuroxime and Bactrim DS. In reviewing external med system is appears that he rotates these 3 antibiotic. Instructions are to take Cefuroxime for 10 days every 3 months rotated with Bactrim. Objective Vital signs: Temperature 97.1 F 03/03/17 07:36 Pulse Rate 76 03/03/17 07:36 Respiratory Rate 18 03/03/17 10:50 Blood Pressure 161/78 H 03/03/17 07:36 Pulse Oximetry 93 03/03/17 10:50 Oxygen Delivery Method Nasal Cannula Oxygen Flow Rate 3 Weight: 83 kg - Constitutional Present: no acute distress, well nourished, well developed - Routine HEENT Exam ENT: Present: mucous membranes moist, oropharynx clear - Routine Respiratory Exam Present: rhonchi, wheezes, diminished air movement - Routine Cardiovascular Exam Present: S1, S2 - Routine Abdominal Exam Present: soft, non distended, non tender - Routine Extremities Exam Present: no edema - Routine Skin Exam Present: intact, dry, warm - Routine Neurological Exam Present: alert, oriented X3 - Routine Psychiatric Exam Present: normal affect, normal thought process, cooperative Hospital Course This is a general summary of the patient's hospital course. For more details refer to the complete medical record. Hospital course: Date of admission: 02/25/17 Date of discharge: 03/03/17 Acute on chronic respiratory failure, COPD exacerbation --Started IV steroids; began tapering on 02/27/17. Prednisone started on 02/28/17. --Increased Lasix to 40 mg d/t lower ext edema; this was reduced to routine dose on 02/27/17; later held. --Doxycycline + Rocephin initiated. Sputum cx grew out normal sandy. --O2 needs gradually declined from 6L to 3L. ABG showed fairly well compensated hypercarbic respiratory failure. --Leukocytosis secondary to steroid effect --PT/OT consulted --Nystatin started for thrush on 03/02/17. Mild intermittent hypernatremia; elevated BUN --Lasix + KDur were held for a few days but resumed at DC. --Na 144 and BUN down to 34 on day of discharge. HTN with elevated BP --Norvasc 2.5 mg added on 03/01/17 --EKG with conduction delay; BB were not given. Pulmonary fibrosis/ESMER --Follow-up with Dr. Ponce --may need to adjust CPAP settings --resume prophylactic antibiotic rotation per pulmonology. F/U with Dr. Corona in [address] Ponce in about 2 weeks. Rx Prednisone taper. Recheck BMP on 03/06/17 to follow up on hypernatremia and elevated BUN. [facility] Time spent with patient: discharge greater than 30 minutes Discharge Plan - Med Rec/Dispo Referrals/Follow Up: Rosanna Corona MD [Family Provider] - 1 Week Chris Ponce MD [Physician] - 2 Weeks (May need to adjust CPAP settings.) Truven Instructions: Hypoxia (GEN) Prescriptions: New Amlodipine [Norvasc] 2.5 mg PO DAILY tablet Nystatin Oral Liq. [Mycostatin] 5 ml PO QID 8 Days udc PredniSONE [Deltasone] 20 mg PO WB 11 Days tablet Continue Tamsulosin HCl [Flomax] 0.4 mg PO HS #0 Arformoterol Neb [Brovana Neb] 1 vial AEROSOL BID #320 ml Pravastatin Sodium 20 mg PO HS #0 tab Potassium Chloride ER Tab [K-Dur] 10 meq PO DAILY Budesonide 0.25 mg AEROSOL BID Azithromycin [Zithromax] 500 mg PO DAILY guaiFENesin [Mucinex] 600 mg PO HS Sulfamethoxazole/Trimethoprim [Bactrim Ds Tablet] 1 tab PO BID #0 tab cefUROXime axetil [Cefuroxime] 1 tab PO BID #0 Furosemide [Lasix] 20 mg PO DAILY - Disposition 03 To SNU Not [facility] ([facility]) <Paty Ball - Last Filed: 03/03/17 18:21> Discharge Information Date of admission: 02/26/17 15:36 Attending Physician: Paty Ball MD Primary care physician: Rosanna Corona MD Consults: 02/27/17 10:20 [facility] Consult [CONS] Routine 03/03/17 10:12 Doctor [Physician Consult] [CONS] Routine Consulting Provider: Rolando Zuniga Reason For Exam: continued care Ordering Provider has Notified It Security Specialist: Yes - Laboratory Labs: 03/03/17 04:42 03/03/17 04:42 - Microbiology Microbiology 02/28/17 19:21 Sputum, Expectorated Gram Stain - Final 02/28/17 19:21 Sputum, Expectorated Sputum Culture - Preliminary Normal Respiratory Sandy Objective Vital signs: Temperature 97.1 F 03/03/17 07:36 Pulse Rate 76 03/03/17 07:36 Respiratory Rate 18 03/03/17 15:43 Blood Pressure 161/78 H 03/03/17 07:36 Pulse Oximetry 91 03/03/17 15:43 Oxygen Delivery Method Nasal Cannula Oxygen Flow Rate 2 Hospital Course This is a general summary of the patient's hospital course. For more details refer to the complete medical record. Hospital course: I have independently evaluated and examined this patient. I reviewed the chart, the patient's history, and the SIEBEL SOLUTION ARCHITECT/PA's documented findings as above. We discussed and formulated the assessment and plan as above with additions as below: Mr. Lynch described a brief episode of chest pain while having a bowel movement today-he indicated his oxygen saturation dropped and it was during the period of time his O2 level dropped that he experienced chest discomfort. Discomfort was in the area of the low sternum/epigastrium and resolved as soon as he completed his bowel movement. He denied diaphoresis, nausea, or dyspnea. EKG was subsequently obtained and shows no acute changes although limb leads have been transposed compared to prior EKG. He otherwise reports that his breathing continues to improve and that he tolerated CPAP last night with the altered mask utilized. Patient is alert and in no distress. Respirations were nonlabored with good airflow and breath sounds were clear. Stable for discharge at this time, advised to follow up with his online community manager regarding CPAP settings and possible use of BiPAP at home due to significantly elevated PCO2. Prednisone taper as described.
--- NOTE | 2017-03-03 14:21 | Extended Care Facility Orders ---
<YenniMachelle ash Romy - Last Filed: 03/03/17 14:17> Admission Orders Admit to:: [facility] Allergies/Adverse Reactions: Allergies ciprofloxacin Allergy (Intermediate, Verified 02/25/17 09:20) pt states pain/ stiffness Penicillins Allergy (Verified 02/25/17 09:20) Admitting Diagnosis: COPD exacerbation Admitting Physician: Paty Ball MD Attending Physician: Paty Ball MD Code Status: Full Code Anticiapted Length of Stay: 30 days or less Rehab Potential: good Rehab Prognosis: good Diet: Regular with 2g sodium restriction. May use Facility Protocol or Standing Orders: Yes May have flu vaccine: Yes Evaluations/Treatment: PT, OT [facility] Certification: I certify that SNF services are required to be given on an Inpatient basis because of the patient's need for long-term care on a continuing basis for the condition(s) for which he received inpatient hospital services prior to his transfer to the SNF. SNF inpatient care is necessary for the following reasons Indication for [facility]: Teach COPD Management - Additional Information In Event of Arrest: Start CPR,call 911,send patient to the ER Resident is Aware of Diagnosis: Yes Laboratory/Radiology: BMP on 03/06/17 to follow up on hypernatremia and elevated BUN. Referrals: Rosanna Corona MD [Family Provider] - 1 Week Chris Ponce MD [Physician] - 2 Weeks (May need to adjust CPAP settings.) Additional Orders: Resume previous orders for antibiotic rotation. If questions , contact Dr. Ponce . Continuous oxygen. Daily weights. Prednisone taper: 40 mg on 03/04. 20 mg 03/05-03/09. 10 mg 03/10-03/14 <Paty Ball - Last Filed: 03/03/17 18:15> Admission Orders Admitting Diagnosis: Hypoxia Admitting Physician: Paty Ball MD Attending Physician: Paty Ball MD Code Status: Full Code [facility] Certification: I certify that SNF services are required to be given on an Inpatient basis because of the patients need for long-term care on a continuing basis for the condition(s) for which he/she received inpatient hospital services prior to his/her transfer to the SNF. SNF inpatient care is necessary for the following reasons
[2017-03-03 15:50] VITALS: O2SAT 91
== END 2017-03-03 16:25 | DRG 190 ==
LOC: MED 08:41 → ED 08:41 → MED 10:50
PROVIDERS: ADMIT Hospitalist; ATTEND Internal Medicine